=== PATIENT | male | born 1930 | race Caucasian/White ===

== ENCOUNTER 2016-11-15 13:36 | Observation (INO) | payer BC, OTHER ==
--- NOTE | 2016-11-15 14:32 | PDOC ---
History of Present Illness - General History Source: Patient, Spouse Exam Limitations: No Limitations <Emmanuelle Christina - Last Filed: 11/15/16 16:53> - History of Present Illness Initial Comments: 11/15/16 14:39 - General History Source: Patient, Spouse Exam Limitations: No Limitations - History of Present Illness Initial Comments: 11/15/16 14:32 The patient is an 86-year-old man, accompanied by , with a significant past medical history of hypertension, hypercholesterolemia, atrial fibrillation ( status post permanent pacemaker placement), end-stage renal disease (on hemodialysis TRS; received full hemodialysis today) who was sent from [facility] to the emergency department for further evaluation of generalized weakness and back pain. As per patients , the patient has been complaining of left sided lower back pain for the past three weeks. No numbness or tingling sensations to his extremities. No trauma/fall. He reports he was unable to sleep last night, as his pain was unbearable. He went to dialysis today and receive a full treatment. Patient was noted to be weak and was advised to go to the ER for further evaluation. Patients expresses concern as the patient was able to put on his clothes and perform his daily activities on his own, but now he is unable to even stand up as he experiences pain when he tries to get from standing to sitting position. No history of prostate Ca. No fever, chills. No chest pain, lightheadedness, dizziness, headaches, visual changes, palpitations. No abdominal pain, nausea, diarrhea. Allergies: Penicillin Past Surgical History: Permanent Pacemaker Placement. Right Knee Arthroscopy. Social History: Former smoker (Quit approximately 30 years ago). No ETOH and recreational drug use. Primary Care Physician: Dr. Everardo Lott Remainder of the review of systems is negative. <Emmanuelle Christina - Last Filed: 11/15/16 14:33> <Preeti Treviño - Last Filed: 11/16/16 16:03> - General Chief Complaint: Back Pain Stated Complaint: WEAKNESS Time Seen by Provider: 11/15/16 14:09 Past History <Emmanuelle Christina - Last Filed: 11/15/16 16:53> - Past Medical History Anemia: Yes Cardiac Disorders: Yes (PACEMAKER) CVA: No Diabetes: No Dialysis: Yes (RUPPERARM AV FISTULA) GI Disorders: Yes (ACID REFLUX) Disorders: No HTN: Yes Hypercholesterolemia: Yes Liver Disease: No Other medical history: HYPERKALEMIA - Surgical History Cardiac Surgery: Yes (pacemaker, STENTS) Orthopedic Surgery: Yes (R HIP FX) - Psycho/Social/Smoking Cessation Hx Anxiety: No Suicidal Ideation: No Smoking Status: No Smoking History: Unknown if ever smoked Years of Tobacco Use: 30 Have you smoked in the past 12 months: No Number of Cigarettes Smoked Daily: 0 If you are a former smoker, when did you quit?: 6YRS AGO Hx Alcohol Use: No Drug/Substance Use Hx: No Substance Use Type: None Hx Substance Use Treatment: No <Preeti Treviño - Last Filed: 11/16/16 16:03> - Past Medical History Allergies/Adverse Reactions: Allergies Allergy/AdvReac Type Severity Reaction Status Date / Time Penicillins Allergy Verified 11/15/16 13:58 Home Medications: Ambulatory Orders Apixaban [Eliquis] 2.5 mg PO BID 05/28/16 Aspirin [ASA -] 81 mg PO DAILY 05/28/16 Diltiazem HCl [Diltiazem 24Hr Cd] 120 mg PO DAILY 05/28/16 Multivitamins [Multivit ([facility] Formulary)] 1 tab PO DAILY 05/28/16 Sevelamer Carbonate [Renvela -] 800 mg PO TID 05/28/16 Metoprolol Succinate [Toprol XL -] 100 mg PO DAILY 06/01/16 Pantoprazole Sodium [Protonix -] 40 mg PO DAILY tablet.ec 06/03/16 Review of Systems - Review of Systems Able to Perform ROS?: Yes Comments:: 11/15/16 14:33 12 point review of systems is as per history of present illness and otherwise negative. <Emmanuelle Christina - Last Filed: 11/15/16 16:53> *Physical Exam - Vital Signs Last Vital Signs Temp Pulse Resp BP Pulse Ox 97.2 F L 60 18 84/53 98 11/15/16 13:52 11/15/16 13:52 11/15/16 13:52 11/15/16 13:52 11/15/16 13:52 <Emmanuelle Christina - Last Filed: 11/15/16 16:53> - Vital Signs Last Vital Signs Temp Pulse Resp BP Pulse Ox 97.2 F L 60 18 84/53 98 11/15/16 13:52 11/15/16 13:52 11/15/16 13:52 11/15/16 13:52 11/15/16 13:52 - Physical Exam Comments: 11/15/16 14:30 Physical exam Last Vital Signs Temp Pulse Resp BP Pulse Ox 97.2 F L 60 18 84/53 98 11/15/16 13:52 11/15/16 13:52 11/15/16 13:52 11/15/16 13:52 11/15/16 13:52 GENERAL: The patient is awake, and answering simple questions, poor historian HEAD: Normal with no signs of trauma. EYES: sclera anicteric, conjunctiva are normal. ENT: Moist mucous membranes. NECK: Normal range of motion, supple LUNGS: Breath sounds equal, clear to auscultation bilaterally. No wheezes, and no crackles. HEART: Regular rate and rhythm, normal S1 and S2 without murmur, rub or gallop. ABDOMEN: Soft, nontender, normoactive bowel sounds. No guarding, no rebound. No masses appreciated. BACK: There is mild diffuse LS-spine tenderness, and no T-spine or C-spine tenderness There is left paraspinal tenderness and plus minus left flank tenderness No bruises are seen EXTREMITIES: Normal range of motion, no edema. No clubbing or cyanosis. No cords, erythema, or tenderness. NEUROLOGICAL: Patient with diminished leg raising bilaterally due to pain Positive passive straight leg raising on the right for pain, and positive passive straight leg raising on the left for pain PSYCH: Normal mood, normal affect. SKIN: Warm, Dry, <Preeti Treviño - Last Filed: 11/16/16 16:03> ED Treatment Course - LABORATORY CBC & Chemistry Diagram: 11/15/16 14:26 11/15/16 14:35 <Emmanuelle Christina - Last Filed: 11/15/16 16:53> - LABORATORY CBC & Chemistry Diagram: 11/16/16 11:03 11/16/16 10:55 - RADIOLOGY Radiology Studies Ordered: Category Date Time Status ABDOMEN & PELVIS CT W/O CONTR [CT] Stat CT Scan 11/15/16 14:10 Ordered SPINE-LUMBAR SACRAL [RAD] Stat Radiology 11/15/16 14:11 Ordered <Sam Treviñoee - Last Filed: 11/16/16 16:03> Medical Decision Making - Medical Decision Making 11/15/16 16:[address] Velasquez. 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 11/15/16 16:15 Laboratory Results - last 24 hr 11/15/16 11/15/16 14:26 14:35 WBC 11.8 H RBC 3.11 L Hgb 8.9 L D Hct 28.0 L MCV 90.3 MCHC 31.8 L RDW 16.6 H D Plt Count 292 MPV 8.0 Sodium 142 Potassium 3.5 Chloride 103 Carbon Dioxide 28 Anion Gap 11 BUN 11 D Creatinine 2.6 H D Creat Clearance w eGFR 23.58 Random Glucose 109 H D Calcium 8.4 L Total Bilirubin 0.7 D AST 19 D ALT 21 Alkaline Phosphatase 407 H D Total Protein 6.0 L Albumin 2.2 L D 11/15/16 16:50 CT scan of the abdomen and pelvis as read by me Polycystic kidneys are noted There is severe multilevel DJD of the LS-spine seen on the CAT scan X-rays of the LS-spine is read by me Severe multilevel DJD with bridging and lipping, and lost of disc space Chest x-ray as read by me-NAD Patient has not given us a urine specimen yet-he states he makes no urine 11/15/16 17:19 Case and all results discussed with Dr. Hamida Velasquez-will place in observation Impression-back pain and weakness 11/15/16 21:35 Addendeum - Radiology reports CT L spine - radiology EXAM#: TYPE/EXAM: RESULT: [id number] CT/LUMBAR SPINE CT W/O CONTRAST Back pain. CT scan of the lumbar spine without intravenous contrast. Coronal and sagittal reconstruction images were obtained. Compared to x-rays of the lumbar spine obtained earlier on the same date. The height and alignment of the vertebral bodies appear unremarkable without evidence of a compression fracture or subluxation. Degenerative vacuum phenomena in the entire lumbar spine with marked narrowing of L5-S1 intervertebral disc space T12-L1 mild central disc bulge and posterior spur formation L3-L4 mild broadbase disc bulge without gross nerve root impingement. L4-L5 mild bilateral lateral disc bulge and posterior spur formation probably impinging left L4 nerve root. L5-S1 mild broadbase and bilateral lateral disc bulge with posterior spur formation impinging right L5 as well as right S1 nerve root in the lateral recess and reaching left L5 nerve root A distal abdominal aorta stent extending into the right and left common iliac artery are present. Partially included low- attenuation lesion in the right hepatic lobe as noted on prior CT scan of the abdomen done earlier on the same date. Impression: See discussion above No compression fracture, subluxation or bone destruction is identified. Multilevel mild disc bulge and posterior spur formation probably impinging left L4 nerve root at L4 -L5 level as well as impinging right L5 and S1 nerve root at L5-S1 level. 11/15/16 21:38 EXAM#: TYPE/EXAM: RESULT: [id number] CT/ABDOMEN PELVIS CT W/O CONTR Left flank level and marked pain CT scan of the abdomen pelvis without oral and intravenous contrast Coronal and sagittal reformatted images were obtained Compared to prior CT scan of the abdomen pelvis dated The visualized lung base appears unremarkable and the heart is moderately enlarged. A small hiatus hernia is again seen. The liver and spleen are within normal limits in size. There is a focal low-attenuation density in the right hepatic lobe measuring 3 cm. The stomach is collapsed and has could not be evaluated. Gallbladder is adequately distended with small intraluminal stones. Normal- appearing pancreas and both adrenal glands. Multiple bilateral renal cysts again seen. There is no evidence of small bowel obstruction or enlarged retroperitoneal lymph nodes. Interval aorta stent extending to the right and left iliac artery. 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 No para-aortic free fluid or fluid collections seen Normal stool burden in the colon. No free air or free fluid in the abdomen and pelvis. Decompressed urinary bladder limiting evaluation of its wall. Slightly enlarged prostate gland. Multilevel degenerative disc disease in the thoracic spine Impression: Interval focal low-attenuation lesion in the right hepatic lobe measuring 3 cm that is highly suspicious for malignancy, primary versus secondary. Further evaluation is needed. Interval aorto and bilateral iliac stent. Distal abdominal aorta now measures 4 cm in AP dimension. Multiple large bilateral renal cysts again seen without evidence of hydronephrosis. Dr Lara CT findings of liver nodule/mass to be evaluated by in-pt team <Preeti Treviño - Last Filed: 11/16/16 16:03> *DC/Admit/Observation/Transfer - Attestations Scribe Attestion: 11/15/16 14:33 Documentation prepared by Emmanuelle Christina, acting as medical social consultant for Preeti Treviño MD. <Emmanuelle Christina - Last Filed: 11/15/16 16:53> - Discharge Dispostion Admit: Yes <Preeti Treviño - Last Filed: 11/16/16 16:03> Diagnosis at time of Disposition: Back pain, Weakness - Referrals
[2016-11-15] MEDS ORDERED: HYDROmorphone HCL CARPU-JECT 1 MG/1 ML DISP.SYRIN IVPUSH ONE (14:44)
[2016-11-15] MEDS ORDERED: HYDROmorphone HCL CARPU-JECT 1 MG/1 ML DISP.SYRIN ONE (14:50)
[2016-11-15 14:51] LABS: MCH 28.7 pg (25.7-33.7); MCHC 31.8 g/dl (32.0-35.9); MEAN CELL VOLUME 90.3 fl (80-96); PLATELET COUNT 292 K/MM3 (134-434); RDW 16.6 % (11.9-15.9); WHITE BLOOD COUNT 11.8 K/mm3 (4.0-10.0)
[2016-11-15 15:17] LABS: ALBUMIN 2.2 g/dl (3.4-5.0); BILIRUBIN,TOTAL 0.7 mg/dL (0.2-1.0); CALCIUM 8.4 mg/dL (8.5-10.1); CREATININE 2.6 mg/dL (0.7-1.3)
[2016-11-15] MEDS ORDERED: traMADol HCL 50 MG TABLET PO PRN (20:45)
[2016-11-15] MEDS ORDERED: HYDROmorphone HCL CARPU-JECT 1 MG/1 ML DISP.SYRIN IVPB PRN (20:45)
[2016-11-15] MEDS ORDERED: DOCUSATE SODIUM 100 MG CAPSULE (FP) PO PRN (20:45)
[2016-11-15 20:48] VITALS: BMI 24.7
[2016-11-15] MEDS: APIXABAN 2.5 MG TABLET PO SCH (22:42)
--- NOTE | 2016-11-16 08:15 | EKG ---
Test Reason : Blood Pressure : / mmHG Vent. Rate : 060 BPM Atrial Rate : 258 BPM P-R Int : 000 ms QRS Dur : 118 ms QT Int : 472 ms P-R-T Axes : 000 -50 079 degrees QTc Int : 472 ms AV dual-paced rhythm with prolonged AV conduction ABNORMAL ECG WHEN COMPARED WITH ECG OF 01-JUN-2016 15:30, VENT. RATE HAS DECREASED BY 55 BPM PACED RHYTHM IS SEEN Confirmed by LALITO SCHROEDER, JAY ([id number]) on 11/16/2016 8:14:53 AM Referred By: Confirmed By:JAY STARKEY MD
[2016-11-16] MEDS: SEVELAMER CARBONATE 800 MG TAB (FP) PO SCH ×4 (08:16→18:51)
--- NOTE | 2016-11-16 10:15 | HP ---
Admitting History and Physical - Primary Care Physician PCP: Everardo Lott - Admission Chief Complaint: back pain History of Present Illness: ER HISTORY - History of Present Illness Initial Comments: 11/15/16 14:32 The patient is an 86-year-old man, accompanied by , with a significant past medical history of hypertension, hypercholesterolemia, atrial fibrillation ( status post permanent pacemaker placement), end-stage renal disease (on hemodialysis TRS; received full hemodialysis today) who was sent from Dialysis Center to the emergency department for further evaluation of generalized weakness and back pain. As per patients , the patient has been complaining of left sided lower back pain for the past three weeks. No numbness or tingling sensations to his extremities. No trauma/fall. He reports he was unable to sleep last night, as his pain was unbearable. He went to dialysis today and receive a full treatment. Patient was noted to be weak and was advised to go to the ER for further evaluation. Patients expresses concern as the patient was able to put on his clothes and perform his daily activities on his own, but now he is unable to even stand up as he experiences pain when he tries to get from standing to sitting position. No history of prostate Ca. No fever, chills. No chest pain, lightheadedness, dizziness, headaches, visual changes, palpitations. No abdominal pain, nausea, diarrhea. Pt examined by me on the floors at bedside Pt is lying in bed, comfortable He received IV Dilaudid in the ER yesterday no complaints wants to go home states that he has pain when he goes to dialysis and is sitting for long periods in the chair at outpt dialysis CT abd/pelvis and LS spine xrays were done History Source: Patient, Family Member Limitations to Obtaining History: No Limitations - Past Medical History Cardiovascular: Yes: HTN, Other (Aflutter on Eliquis, AAA) Gastrointestinal: Yes: Other (h/o rectal bleed- 2010, gastric ulcer) Renal/: Yes: Renal Inusuff, Hemodialysis - Past Surgical History Past Surgical History: Yes: AAA Repair, Permanent Pacemaker - Advance Directives Advance Directives: Yes: Health Care Proxy - Smoking History Smoking history: Unknown if ever smoked Have you smoked in the past 12 months: No Aproximately how many cigarettes per day: 0 If you are a former smoker, when did you quit?: 6YRS AGO - Alcohol/Substance Use Hx Alcohol Use: No - Social History History of Recent Travel: No Home Medications - Allergies Allergies/Adverse Reactions: Allergies Allergy/AdvReac Type Severity Reaction Status Date / Time Penicillins Allergy Verified 11/15/16 13:58 - Home Medications Home Medications: Ambulatory Orders Apixaban [Eliquis] 2.5 mg PO BID 05/28/16 Aspirin [ASA -] 81 mg PO DAILY 05/28/16 Diltiazem HCl [Diltiazem 24Hr Cd] 120 mg PO DAILY 05/28/16 Multivitamins [Multivit ([facility] Formul[facility])] 1 tab PO DAILY 05/28/16 Sevelamer Carbonate [Renvela -] 800 mg PO TID 05/28/16 Metoprolol Succinate [Toprol XL -] 100 mg PO DAILY 06/01/16 Pantoprazole Sodium [Protonix -] 40 mg PO DAILY tablet.ec 06/03/16 Family Disease History - Family Disease History Family History: Denies Review of Systems - Review of Systems Constitutional: denies: Chills, Fever, Loss of Appetite, Weakness Gastrointestinal: denies: Abdominal Pain Physical Examination Vital Signs: Vital Signs Temperature 97.5 F L 11/16/16 06:00 Pulse Rate 63 11/16/16 06:00 Respiratory Rate 18 11/16/16 06:00 Blood Pressure 103/51 11/16/16 06:00 O2 Sat by Pulse Oximetry (%) 94 L 11/15/16 21:00 Constitutional: Yes: No Distress, Calm Cardiovascular: Yes: Regular Rate and Rhythm, Murmur, Other (PPM) Respiratory: Yes: Diminished. No: Rales, Rhonchi Gastrointestinal: Yes: Normal Bowel Sounds, Soft. No: Distention, Tenderness Musculoskeletal: No: Back Pain, Muscle Pain Edema: No Psychiatric: Yes: Alert Labs: Laboratory Results - last 24 hr 11/15/16 11/15/16 14:26 14:35 WBC 11.8 H RBC 3.11 L Hgb 8.9 L D Hct 28.0 L MCV 90.3 MCHC 31.8 L RDW 16.6 H D Plt Count 292 MPV 8.0 Sodium 142 Potassium 3.5 Chloride 103 Carbon Dioxide 28 Anion Gap 11 BUN 11 D Creatinine 2.6 H D Creat Clearance w eGFR 23.58 Random Glucose 109 H D Calcium 8.4 L Total Bilirubin 0.7 D AST 19 D ALT 21 Alkaline Phosphatase 407 H D Total Protein 6.0 L Albumin 2.2 L D Laboratory Last Values WBC 11.8 K/mm3 (4.0-10.0) H 11/15/16 14:26 RBC 3.11 M/mm3 (4.00-5.60) L 11/15/16 14:26 Hgb 8.9 GM/dL (11.7-16.9) L D 11/15/16 14:26 Hct 28.0 % (35.4-49) L 11/15/16 14:26 MCV 90.3 fl (80-96) 11/15/16 14:26 MCHC 31.8 g/dl (32.0-35.9) L 11/15/16 14:26 RDW 16.6 % (11.9-15.9) H D 11/15/16 14:26 Plt Count 292 K/MM3 (134-434) 11/15/16 14:26 MPV 8.0 fl (7.5-11.1) 11/15/16 14:26 Sodium 142 mmol/L (136-145) 11/15/16 14:35 Potassium 3.5 mmol/L (3.5-5.1) 11/15/16 14:35 Chloride 103 mmol/L (98-107) 11/15/16 14:35 Carbon Dioxide 28 mmol/L (21-32) 11/15/16 14:35 Anion Gap 11 (8-16) 11/15/16 14:35 BUN 11 mg/dL (7-18) D 11/15/16 14:35 Creatinine 2.6 mg/dL (0.7-1.3) H D 11/15/16 14:35 Creat Clearance w eGFR 23.58 (>60) 11/15/16 14:35 Random Glucose 109 mg/dL (74-106) H D 11/15/16 14:35 Calcium 8.4 mg/dL (8.5-10.1) L 11/15/16 14:35 Total Bilirubin 0.7 mg/dL (0.2-1.0) D 11/15/16 14:35 AST 19 U/L (15-37) D 11/15/16 14:35 ALT 21 U/L (12-78) 11/15/16 14:35 Alkaline Phosphatase 407 U/L (45-117) H D 11/15/16 14:35 Total Protein 6.0 g/dl (6.4-8.2) L 11/15/16 14:35 Albumin 2.2 g/dl (3.4-5.0) L D 11/15/16 14:35 Imaging - Results Chest X-ray: Image Reviewed Cat Scan: Report Reviewed (CT abd/pelvis and LS spine noted) EKG: Image Reviewed (paced) Problem List - Problems (1) Atrial flutter Code(s): I48.92 - UNSPECIFIED ATRIAL FLUTTER Qualifiers: Atrial flutter type: unspecified Qualified Code(s): I48.92 - Unspecified atrial flutter (2) ESRD (end stage renal disease) Code(s): N18.6 - END STAGE RENAL DISEASE (3) ESRD (end stage renal disease) on dialysis Code(s): N18.6 - END STAGE RENAL DISEASE Z99.2 - DEPENDENCE ON RENAL DIALYSIS (4) Liver mass, right lobe Code(s): R16.0 - HEPATOMEGALY, NOT ELSEWHERE CLASSIFIED (5) AAA (abdominal aortic aneurysm) Code(s): I71.4 - ABDOMINAL AORTIC ANEURYSM, WITHOUT RUPTURE (6) Intractable back pain Code(s): M54.9 - DORSALGIA, UNSPECIFIED Assessment/Plan PLAN Pt 's back pain better, LS spine CT-- nerve impingement -- start gabapentin Physical therapy ordered, Tramadol as needed for pain . DC Dilaudid H/O AAA s/p repair-- distal aorta is widened , check CT abd/pelvis with IV contrast ESRD on HD-- HD per Renal, not volume overloaded Liver mass- seen on CT abd/pelvis, check tumor markers. Spoke with about it , tumor markers pending. She will discuss with her son about further work up including biopsy-- he will need to be off Eliquis for 5 days and be on Heparin infusion in the meantime . GI eval DVT prophylaxis-- On eliquis BP is low-- Toprol and cardizem on hold, check CT abd/pelvis with iv contrast for AAA Time spent including discussing with -- 35min
--- NOTE | 2016-11-16 11:18 | CONSULT ---
Consult - text type - Consultation Consultation Note: Renal Consult for ESRD on HD This is a 86 year old gentleman with PMhx of ESRD on HD (TTS), Afib on Eliquis, Hypertension, HLD who presented to the ED following dialysis with complaints of generalized pain but most noticeable in Left Lower back. As per the the pain is worst when sitting for a long time at dialysis but recently it has been persistent at home too. No bowel or bladder incontinence. s/p complete dialysis yesterday. Currently denies any pain, sob, chest pain, N/V/D. CT of the Abd showed a lesion/mass in the liver and multiple kidney cysts. PMhx: as above Allergies: NKDA Family Hx: NC Social Hx: No T/A/D ROS: as per HPI Home Meds: Home Medications Medication Instructions Recorded Apixaban [Eliquis] 2.5 mg PO BID 05/28/16 Aspirin [ASA -] 81 mg PO DAILY 05/28/16 Diltiazem HCl [Diltiazem 24Hr Cd] 120 mg PO DAILY 05/28/16 Multivitamins [Multivit ([facility] 1 tab PO DAILY 05/28/16 Formulary)] Sevelamer Carbonate [Renvela -] 800 mg PO TID 05/28/16 Metoprolol Succinate [Toprol XL -] 100 mg PO DAILY 06/01/16 Pantoprazole Sodium [Protonix -] 40 mg PO DAILY tablet.ec 06/03/16 Vital Signs Temperature 97.5 F L 11/16/16 06:00 Pulse Rate 63 11/16/16 06:00 Respiratory Rate 18 11/16/16 06:00 Blood Pressure 103/51 11/16/16 06:00 O2 Sat by Pulse Oximetry (%) 94 L 11/15/16 21:00 Intake & Output 11/13/16 11/14/16 11/15/16 11/16/16 23:59 23:59 23:59 23:59 Weight 135 lb Gen: NAD, awake and alert HEENT: NC/AT CVS: RRR, No M/R Lungs: CTA, no rales or wheeze Abd: soft NT/ND Ext: No edema, clubbing or cyanosis. Some erythema left heel Neuro: AAOX3, no focal defects CBC, BMP 11/15/16 14:26 11/15/16 14:35 Laboratory Tests 11/15/16 11/15/16 11/15/16 14:35 14:35 14:35 Calcium 8.4 L Alkaline Phosphatase 407 H D Total Protein 6.0 L Albumin 2.2 L D Tumor Marker AFP Pending Carcinoembryonic Ag Pending Current Medications Apixaban (Eliquis -) 2.5 mg PO BID [facility] Last Admin: 11/15/16 22:42 Dose: 2.5 mg Aspirin (Asa -) 81 mg PO DAILY [facility] Diltiazem HCl (Cardizem Cd -) 120 mg PO DAILY [facility] Docusate Sodium (Colace -) 100 mg PO BID PRN PRN Reason: CONSTIPATION Hydromorphone HCl (Dilaudid Injection -) 0.5 mg IVPB Q6H PRN PRN Reason: PAIN Metoprolol Succinate (Toprol Xl -) 100 mg PO DAILY [facility] Pantoprazole Sodium (Protonix -) 40 mg PO DAILY [facility] Sevelamer Carbonate (Renvela -) 800 mg PO TIDCM [facility] Last Admin: 11/16/16 09:03 Dose: 800 mg Tramadol HCl (Ultram -) 50 mg PO Q4H PRN PRN Reason: PAIN A/P 86 year old gentleman with PMhx of ESRD on HD (TTS), Afib on Eliquis, Hypertension, HLD who presented to the ED following dialysis with complaints of gerneralzied pain but most noticeable in Left Lower back. #Lower Back pain Pain control as per primary CT of the spine showed multilevel disc buldge and spur formation #Liver Lesion suspicious for malignancy Tumor markers ordered Pt may benefit from contrast CT of the Abd GI consult ordered #Kidney Cysts Check CT of the Abd with IV contrast to r/o complex Cysts #ESRD on HD no acute indication for dialysis today next dialysis for tomorrow morning #Hypertension BP is marginal today holding metoprolol and Cardizem #Afib on Eliquis holding BB and CCB because of marginal BP Thank you Addy Anderson DO
[2016-11-16] MEDS: METOPROLOL SUCCINATE 100 MG TAB.SR.24H (FP) PO SCH (11:21)
[2016-11-16] MEDS ORDERED: PT OWN MED DRAWER 7, Y5N ONE ×2 (11:23→21:35)
[2016-11-16] MEDS: ASPIRIN 81 MG CHEWABLE TABLETS PO SCH (11:24)
[2016-11-16] MEDS: PANTOPRAZOLE 40 MG TABLET (FP) PO SCH (11:25)
[2016-11-16] MEDS: APIXABAN 2.5 MG TABLET PO SCH ×2 (11:25→22:00)
[2016-11-16 11:36] LABS: MCH 28.6 pg (25.7-33.7); MCHC 31.8 g/dl (32.0-35.9); MEAN CELL VOLUME 90.1 fl (80-96); MEAN PLT VOLUME 8.2 fl (7.5-11.1); PLATELET COUNT 298 K/MM3 (134-434); RDW 17.1 % (11.9-15.9); WHITE BLOOD COUNT 8.7 K/mm3 (4.0-10.0)
[2016-11-16 12:09] LABS: ALBUMIN 2.1 g/dl (3.4-5.0); CALCIUM 7.9 mg/dL (8.5-10.1); COCKROFT - GAULT 11.4; CREATININE 4.1 mg/dL (0.7-1.3)
[2016-11-16 12:12] LABS: BILIRUBIN,TOTAL 0.7 mg/dL (0.2-1.0); TOT PROT 5.6 g/dl (6.4-8.2)
--- NOTE | 2016-11-16 17:46 | CON.GI ---
Consult Consult Specialty:: GI Referred by:: Dr. Hamida Velasquez - History of Present Illness Chief Complaint: "My back hurts" History of Present Illness: 86M admitted for evaluation of back pain. He was evaluated in 2010 for GI bleed. He ultimately underwent EGD x 2, the first revealing blood clot in the duodenal bulb, the second look EGD revealing a clean based duodenal ulcer. Colonoscopy revealed diverticulosis and blood in the colon limiting evaluation somewhat. He is now admitted for back pain. A CT scan of the abdomen without contrast revealed a 3cm right hepatic lobe lesion, suspicious for a malignancy. He denies abdominal pain. His believes he has lost alot of weight recently, about 11 pounds in the last month. There is no history of known liver disease, hepatitis, alcohol abuse or family history of liver disease however his father at age 61, possibly from ascites related complications. - History Source History Provided By: Patient - Past Medical History Cardio/Vascular: Yes: HTN, Other (Aflutter on Eliquis, AAA) Gastrointestinal: Yes: Other (h/o rectal bleed- 2010, gastric ulcer) Renal/: Yes: Renal Inusuff, Hemodialysis - Past Surgical History Past Surgical History: Yes: AAA Repair, AV Fistula/Graft (right arm), Permanent Pacemaker - Alcohol/Substance Use Hx Alcohol Use: No - Smoking History Smoking history: Unknown if ever smoked Have you smoked in the past 12 months: No Aproximately how many cigarettes per day: 0 If you are a former smoker, when did you quit?: 6YRS AGO - Social History Usual Living Arrangement: With Spouse ADL: Independent 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 Place of : Other ([place]) History of Recent Travel: No Home Medications - Allergies Allergies/Adverse Reactions: Allergies Allergy/AdvReac Type Severity Reaction Status Date / Time Penicillins Allergy Verified 11/15/16 13:58 - Home Medications Home Medications: Ambulatory Orders Apixaban [Eliquis] 2.5 mg PO BID 05/28/16 Aspirin [ASA -] 81 mg PO DAILY 05/28/16 Diltiazem HCl [Diltiazem 24Hr Cd] 120 mg PO DAILY 05/28/16 Multivitamins [Multivit ([facility] Formulary)] 1 tab PO DAILY 05/28/16 Sevelamer Carbonate [Renvela -] 800 mg PO TID 05/28/16 Metoprolol Succinate [Toprol XL -] 100 mg PO DAILY 06/01/16 Pantoprazole Sodium [Protonix -] 40 mg PO DAILY tablet.ec 06/03/16 Family Disease History - Family Disease History Family Disease History: Other: Father ( 61: ? ascites related complications) , Mother (: 74: CVA) Other Family History: 5 siblings. 1 son. No family history of colorectal cancer Review of Systems - Review of Systems Constitutional: reports: Loss of Appetite, Unintentional Wgt. Loss Cardiovascular: denies: Chest Pain, Shortness of Breath Respiratory: denies: Cough Gastrointestinal: denies: Abdominal Pain, Diarrhea, Rectal Bleeding Physical Exam-GI Vital Signs: Vital Signs Temperature 98.6 F 11/16/16 17:23 Pulse Rate 65 11/16/16 17:23 Respiratory Rate 20 11/16/16 17:23 Blood Pressure 111/36 11/16/16 17:23 O2 Sat by Pulse Oximetry (%) 96 11/16/16 09:00 Constitutional: Yes: Calm Eyes: No: Sclera Icterus Cardiovascular: Yes: Regular Rate and Rhythm. No: Murmur Respiratory: Yes: CTA Bilaterally Gastrointestinal Inspection: No: Distention, Scars ...Auscultate: Yes: Normoactive Bowel Sounds ...Palpate: No: Hepatomegaly, Splenomegaly, Tenderness Edema: No Neurological: Yes: Alert, Oriented Labs: CBC, BMP 11/16/16 11:03 11/16/16 10:55 Hepatic Panel Total Bilirubin 0.7 mg/dL (0.2-1.0) 11/16/16 10:55 AST 15 U/L (15-37) D 11/16/16 10:55 ALT 16 U/L (12-78) D 11/16/16 10:55 Alkaline Phosphatase 364 U/L (45-117) H 11/16/16 10:55 Albumin 2.1 g/dl (3.4-5.0) L 11/16/16 10:55 Problem List - Problems (1) Liver mass, right lobe Assessment/Plan: Unclear etiology. Although not reviewed as of yet, the lesion does not appear to be enhancing and ? if there are smaller lesions within the liver. Suggests more metastatic process than primary liver lesions. Will await contrast CT scan read. Check AFP, CEA, CA 19-9 Consider oncology evaluation Liver biopsy could be considered: discussed this option with Mr. Leslie and his . I explained that it would be to get more information about the mass and did explain that it very well could be a cancer. His wanted to speak with their son regarding this prior to making a decision. With back pain ? if bone scan warranted Code(s): R16.0 - HEPATOMEGALY, NOT ELSEWHERE CLASSIFIED
[2016-11-17] MEDS: SEVELAMER CARBONATE 800 MG TAB (FP) PO SCH ×3 (09:34→16:29)
[2016-11-17] MEDS: METOPROLOL SUCCINATE 100 MG TAB.SR.24H (FP) PO SCH (09:43)
[2016-11-17] MEDS: APIXABAN 2.5 MG TABLET PO SCH ×2 (09:43→21:52)
[2016-11-17] MEDS: PANTOPRAZOLE 40 MG TABLET (FP) PO SCH (09:43)
[2016-11-17] MEDS: ASPIRIN 81 MG CHEWABLE TABLETS PO SCH (09:43)
--- NOTE | 2016-11-17 10:29 | PN ---
Progress Note, Physician Chief Complaint: pt examined in HD feels well No distress - Current Medication List Current Medications: Active Medications Apixaban (Eliquis -) 2.5 mg PO BID [facility] Last Admin: 11/17/16 09:43 Dose: Not Given Aspirin (Asa -) 81 mg PO DAILY [facility] Last Admin: 11/17/16 09:43 Dose: Not Given Diltiazem HCl (Cardizem Cd -) 120 mg PO DAILY [facility] Last Admin: 11/17/16 09:44 Dose: Not Given Docusate Sodium (Colace -) 100 mg PO BID PRN PRN Reason: CONSTIPATION Epoetin Alf (Epogen -) 10,000 units IVPUSH ONCE ONE Stop: 11/17/16 06:01 Hydromorphone HCl (Dilaudid Injection -) 0.5 mg IVPB Q6H PRN PRN Reason: PAIN Metoprolol Succinate (Toprol Xl -) 100 mg PO DAILY [facility] Last Admin: 11/17/16 09:43 Dose: Not Given Pantoprazole Sodium (Protonix -) 40 mg PO DAILY [facility] Last Admin: 11/17/16 09:43 Dose: Not Given Sevelamer Carbonate (Renvela -) 800 mg PO TIDCM [facility] Last Admin: 11/17/16 09:34 Dose: 800 mg Tramadol HCl (Ultram -) 50 mg PO Q4H PRN PRN Reason: PAIN - Objective Vital Signs: Vital Signs Temperature 97.6 F 11/17/16 06:00 Pulse Rate 66 11/17/16 06:00 Respiratory Rate 18 11/17/16 06:00 Blood Pressure 123/41 11/17/16 06:00 O2 Sat by Pulse Oximetry (%) 96 11/16/16 17:00 Constitutional: Yes: No Distress Cardiovascular: Yes: Pulse Irregular Respiratory: Yes: Diminished Gastrointestinal: Yes: Normal Bowel Sounds, Soft. No: Distention, Tenderness Edema: No Labs: CBC, BMP 11/16/16 11:03 11/16/16 10:55 Problem List - Problems (1) Atrial flutter Code(s): I48.92 - UNSPECIFIED ATRIAL FLUTTER Qualifiers: Atrial flutter type: unspecified Qualified Code(s): I48.92 - Unspecified atrial flutter (2) ESRD (end stage renal disease) Code(s): N18.6 - END STAGE RENAL DISEASE (3) ESRD (end stage renal disease) on dialysis Code(s): N18.6 - END STAGE RENAL DISEASE Z99.2 - DEPENDENCE ON RENAL DIALYSIS (4) Liver mass, right lobe Code(s): R16.0 - HEPATOMEGALY, NOT ELSEWHERE CLASSIFIED (5) AAA (abdominal aortic aneurysm) Code(s): I71.4 - ABDOMINAL AORTIC ANEURYSM, WITHOUT RUPTURE (6) Intractable back pain Code(s): M54.9 - DORSALGIA, UNSPECIFIED Assessment/Plan PLAN Pt 's back pain better, LS spine CT-- nerve impingement --on gabapentin Physical therapy ordered, Tramadol as needed for pain . DC Dilaudid H/O AAA s/p repair-- distal aorta is widened , CT abd/pelvis with IV contrast noted ESRD on HD-- HD per Renal, not volume overloaded Liver mass- seen on CT abd/pelvis-- looks like metastatic -- awaiting decision from family with regards to further treatment DVT prophylaxis-- On eliquis dc planning will depend on family decision with regards to liver biopsy or EGD as he has significant thickening of gastric fundus on CT with contrast
[2016-11-17 11:32] LABS: MCH 28.4 pg (25.7-33.7); MEAN PLT VOLUME 8.3 fl (7.5-11.1); PLATELET COUNT 328 K/MM3 (134-434); RDW 16.6 % (11.9-15.9); WHITE BLOOD COUNT 8.9 K/mm3 (4.0-10.0)
[2016-11-17 12:03] LABS: CALCIUM 8.2 mg/dL (8.5-10.1); COCKROFT - GAULT 8.66; CREATININE 5.4 mg/dL (0.7-1.3); PHOSPHOROUS 3.3 mg/dL (2.5-4.9)
[2016-11-17 12:05] LABS: BILIRUBIN,TOTAL 0.6 mg/dL (0.2-1.0); TOT PROT 5.6 g/dl (6.4-8.2)
--- NOTE | 2016-11-17 12:27 | PN ---
Progress Note (short form) - Note Progress Note: Renal Follow up for ESRD on HD Pt seen and examined on dialysis BP stable, Goal UF is 2L pt without any complaints s/p CT of Abd/Pelvis with contrast yesterday Vital Signs Temperature 97.6 F 11/17/16 06:00 Pulse Rate 81 11/17/16 12:00 Respiratory Rate 18 11/17/16 12:00 Blood Pressure 92/43 11/17/16 12:00 O2 Sat by Pulse Oximetry (%) 96 11/16/16 17:00 Intake & Output 11/14/16 11/15/16 11/16/16 11/17/16 23:59 23:59 23:59 23:59 Intake Total 880 Output Total 0 Balance 880 Weight 135 lb Gen: NAD, awake and alert HEENT: NC/AT CVS: RRR, No M/R Lungs: CTA, no rales or wheeze Abd: soft NT/ND Ext: No edema, clubbing or cyanosis CBC, BMP 11/17/16 10:40 11/17/16 10:40 Laboratory Tests 11/15/16 11/15/16 11/17/16 14:35 14:35 06:30 MCV Calcium Phosphorus Albumin Tumor Marker AFP 1.9 Carcinoembryonic Ag 6.9 H CA 19-9 Antigen Pending 11/17/16 11/17/16 10:40 10:40 MCV 89.0 Calcium 8.2 L Phosphorus 3.3 Albumin 2.0 L Tumor Marker AFP Carcinoembryonic Ag CA 19-9 Antigen Current Medications Apixaban (Eliquis -) 2.5 mg PO BID [facility] Last Admin: 11/17/16 09:43 Dose: Not Given Aspirin (Asa -) 81 mg PO DAILY [facility] Last Admin: 11/17/16 09:43 Dose: Not Given Diltiazem HCl (Cardizem Cd -) 120 mg PO DAILY [facility] Last Admin: 11/17/16 09:44 Dose: Not Given Docusate Sodium (Colace -) 100 mg PO BID PRN PRN Reason: CONSTIPATION Epoetin Alf (Epogen -) 10,000 units IVPUSH ONCE ONE Stop: 11/17/16 06:01 Hydromorphone HCl (Dilaudid Injection -) 0.5 mg IVPB Q6H PRN PRN Reason: PAIN Metoprolol Succinate (Toprol Xl -) 100 mg PO DAILY [facility] Last Admin: 11/17/16 09:43 Dose: Not Given Pantoprazole Sodium (Protonix -) 40 mg PO DAILY [facility] Last Admin: 11/17/16 09:43 Dose: Not Given Sevelamer Carbonate (Renvela -) 800 mg PO TIDCM [facility] Last Admin: 11/17/16 11:21 Dose: Not Given Tramadol HCl (Ultram -) 50 mg PO Q4H PRN PRN Reason: PAIN A/P 86 year old gentleman with PMhx of ESRD on HD (TTS), Afib on Eliquis, Hypertension, HLD who presented to the ED following dialysis with complaints of gerneralzied pain but most noticeable in Left Lower back. #Lower Back pain CT of the spine showed multilevel disc buldge and spur formation consider bone scan since liver lesion is suspicous for Ca #Liver Lesion suspicious for malignancy CT of the Abd showed lesion with some enhancement suspicious for malignancy GI following Biopsy if pt and family are agreeable - this admssion vs. outpatient #Kidney Cysts CT shoed Cysts and no complex cysts noted #ESRD on HD Tolerating dialysis well today Goal UF is 1.5-2L #Hypertension holding BP meds before HD #Afib on Eliquis holding BB and CCB because of marginal BP Thank you Addy Anderson DO
[2016-11-17] MEDS ORDERED: EPOETIN ALFA 10,000 UNIT/1 ML VIAL IVPUSH ONE (13:45)
[2016-11-17 15:24] LABS: CREATININE 1.1 mg/dL (0.7-1.3)
--- NOTE | 2016-11-17 19:12 | PN ---
Progress Note (short form) - Note Progress Note: Discussed CT scan findings with patient and his family. Discused that it it highly suspicious that there is a cancer in the liver of unclear origin. I explained that there was also an inflammatory process in the stomach and that it was unclear as to whether this was a cancerous process as well. I also said it's possible that the stomach process could be contributing to her back pain and could be a cancerous process as well. We discussed options. We discussed liver biopsy, EGD and possibly colonoscopy. We discussed potential risks of the procedure like but not limited to bleeding, perforation requiring surgery to repair, infection, sedation medication effetc all of which could be potentially life threatening. After discussion he said that he "didn't care what was in there", he didn't want any further testing and wanted to go home. Problem List - Problems (1) Liver mass, right lobe Code(s): R16.0 - HEPATOMEGALY, NOT ELSEWHERE CLASSIFIED
[2016-11-18 07:45] VITALS: BP 102/56
[2016-11-18] MEDS: SEVELAMER CARBONATE 800 MG TAB (FP) PO SCH (09:05)
[2016-11-18 09:07] VITALS: PULSE 91; TEMP 97.8
[2016-11-18] MEDS ORDERED: PT OWN MED DRAWER 7, Y5N ONE (10:02)
[2016-11-18] MEDS: ASPIRIN 81 MG CHEWABLE TABLETS PO SCH (10:07)
[2016-11-18] MEDS: APIXABAN 2.5 MG TABLET PO SCH (10:07)
[2016-11-18] MEDS: PANTOPRAZOLE 40 MG TABLET (FP) PO SCH (10:07)
[2016-11-18] MEDS: METOPROLOL SUCCINATE 100 MG TAB.SR.24H (FP) PO SCH (10:07)
--- NOTE | 2016-11-18 10:47 | DS ---
Physical Examination Vital Signs: Vital Signs Temperature 97.8 F 11/18/16 09:06 Pulse Rate 91 H 11/18/16 09:06 Respiratory Rate 18 11/18/16 09:06 Blood Pressure 102/56 11/18/16 07:43 O2 Sat by Pulse Oximetry (%) 96 11/17/16 17:00 Labs: CBC, BMP 11/17/16 10:40 11/17/16 13:50 <Gaudencio Montoya - Last Filed: 11/18/16 10:46> Vital Signs: Vital Signs Temperature 97.8 F 11/18/16 09:06 Pulse Rate 91 H 11/18/16 09:06 Respiratory Rate 18 11/18/16 09:06 Blood Pressure 102/56 11/18/16 07:43 O2 Sat by Pulse Oximetry (%) 96 11/17/16 17:00 Findings/Remarks: Patient seen and examined. Chart reviewed. Comfortable. No complaints. Pain okay. Wants to go home. at bedside. Patient and do not want any testing. Aware of the risks that cancer might be there. I discussed in detail with them. They say they will follow up with their PMD. Constitutional: Yes: No Distress, Calm Eyes: Yes: Conjunctiva Clear Neck: Yes: Supple Cardiovascular: Yes: Pulse Irregular Respiratory: Yes: Diminished (at bases.) Gastrointestinal: Yes: Soft Edema: No Neurological: Yes: Alert Labs: CBC, BMP 11/17/16 10:40 11/17/16 13:50 <Emmanuelle Christina - Last Filed: 11/18/16 10:53> Discharge Summary Reason For Visit: BACK PAIN; WEAKNESS Current Active Problems AAA (abdominal aortic aneurysm) (Acute) Atrial flutter (Acute) Back pain (Acute) ESRD (end stage renal disease) (Acute) Gastric ulcer (Acute) Intractable back pain (Acute) Liver mass, right lobe (Acute) Systolic CHF (Acute) Weakness (Acute) - Home Medications Comprehensive Discharge Medication List: Ambulatory Orders Apixaban [Eliquis] 2.5 mg PO BID 05/28/16 Aspirin [ASA -] 81 mg PO DAILY 05/28/16 Diltiazem HCl [Diltiazem 24Hr Cd] 120 mg PO DAILY 05/28/16 Multivitamins [Multivit ([facility] Formulary)] 1 tab PO DAILY 05/28/16 Sevelamer Carbonate [Renvela -] 800 mg PO TID 05/28/16 Metoprolol Succinate [Toprol XL -] 100 mg PO DAILY 06/01/16 Pantoprazole Sodium [Protonix -] 40 mg PO DAILY tablet.ec 06/03/16 Docusate Sodium [Colace -] 100 mg PO BID PRN #60 cap 11/18/16 Sevelamer Carbonate [Renvela -] 800 mg PO TIDCM tab 11/18/16 Tramadol HCl [Ultram -] 50 mg PO Q8H PRN #30 tablet MDD 2 11/18/16 <Gaudencio Montoya - Last Filed: 11/18/16 10:46> Current Active Problems AAA (abdominal aortic aneurysm) (Acute) Atrial flutter (Acute) Back pain (Acute) ESRD (end stage renal disease) (Acute) Gastric ulcer (Acute) Intractable back pain (Acute) Liver mass, right lobe (Acute) Systolic CHF (Acute) Weakness (Acute) Hospital Course: The patient is an 86-year-old man with a significant past medical history of hypertension, hypercholesterolemia, atrial fibrillation (status post permanent pacemaker placement), end-stage renal disease (on hemodialysis TRS; received full hemodialysis on 11/15/2016) who was sent from Dialysis Center, 3 days ago, to the emergency department for further evaluation of generalized weakness and back pain. Workup revealed liver mass-- seen on CT of the abdomen and pelvis-- likely metastatic. As mentioned before, patient does not want any further testing. Will discharge home today. Short supply of Tramadol also prescribed. Medications reconciled. Patient to follow up with his PMD next week. Patient will also have dialysis tomorrow, as scheduled. Time spent on discharge planning/ coordinating care/ documenting/ examining as well as discussing with the patient and family-- 40 minutes. Discussed with nursing staff also. Documentation prepared by Emmanuelle Christina, acting as a medical technologist prn for Gaudencio Montoya MD - Home Medications Comprehensive Discharge Medication List: Ambulatory Orders Apixaban [Eliquis] 2.5 mg PO BID 05/28/16 Aspirin [ASA -] 81 mg PO DAILY 05/28/16 Diltiazem HCl [Diltiazem 24Hr Cd] 120 mg PO DAILY 05/28/16 Multivitamins [Multivit ([facility] Formulary)] 1 tab PO DAILY 05/28/16 Sevelamer Carbonate [Renvela -] 800 mg PO TID 05/28/16 Metoprolol Succinate [Toprol XL -] 100 mg PO DAILY 06/01/16 Pantoprazole Sodium [Protonix -] 40 mg PO DAILY tablet.ec 06/03/16 Docusate Sodium [Colace -] 100 mg PO BID PRN #60 cap 11/18/16 Sevelamer Carbonate [Renvela -] 800 mg PO TIDCM tab 11/18/16 Tramadol HCl [Ultram -] 50 mg PO Q8H PRN #30 tablet MDD 2 11/18/16 <Emmanuelle Christina - Last Filed: 11/18/16 10:53> - Instructions Referrals: Everardo Lott MD [Primary Care Provider] -
[2016-11-19 00:07] LABS: HEP B SURFACE AB Reactive (.)
== END 2016-11-18 11:43 | disposition home or self-care (01) ==
LOC: JER 13:36 → JERBED 17:20 → J8W 21:20
PROVIDERS: ADMIT Internal Medicine; ATTEND Internal Medicine
PROC: 3E033NZ Introduction of Analgesics, Hypnotics, Sedatives into Peripheral Vein, Percutaneous Approach (ICD-10-PCS; principal; 2016-11-15)
PROC: 3E033GC Introduction of Other Therapeutic Substance into Peripheral Vein, Percutaneous Approach (ICD-10-PCS; 2016-11-15)
DX: I48.92 Unspecified atrial flutter (principal); I48.91 Unspecified atrial fibrillation; I12.0 Hypertensive chronic kidney disease with stage 5 chronic kidney disease or end stage renal disease; N18.6 End stage renal disease; R16.0 Hepatomegaly, not elsewhere classified; I71.4 Abdominal aortic aneurysm, without rupture; M54.9 Dorsalgia, unspecified; M54.5 Low back pain; Z79.01 Long term (current) use of anticoagulants; Z99.2 Dependence on renal dialysis; K76.9 Liver disease, unspecified; N28.1 Cyst of kidney, acquired; Z79.82 Long term (current) use of aspirin
CPT/HCPCS: 36415; 71010-TC; 72100-TC; 72131-TC; 74176-TC; 74177-TC; 80053; 82105; 82378; 82565; 84100; 84520; 85027; 86301; 86704; 86706; 86708; 87340; 93005; 93010; 97116-GP; 97162; 99282-25; G0378; J0885

== ENCOUNTER 2016-11-19 09:33 | Emergency (ER) | payer BC, OTHER ==
--- NOTE | 2016-11-19 09:59 | PDOC ---
History of Present Illness <Jazmine Arriaga - Last Filed: 11/19/16 12:01> - General History Source: Patient, Spouse, Old Records Exam Limitations: No Limitations - History of Present Illness Initial Comments: 11/19/16 10:11 The patient is an 86-year-old man, accompanied by , with a significant past medical history of hypertension, hypercholesterolemia, atrial fibrillation ( status post permanent pacemaker placement), end-stage renal disease (on hemo- dialysis q. TRS) who presents to the emergency department via EMS for further evaluation of back pain. Patient was in this ED on 11/15/16 for back pain for the past month. At that time, he was noted to feel weak while undergoing dialysis and was sent to the ED. Patient was ultimately admitted. Workup during admission revealed osteoporosis of the back and ? liver mass with metastasis. Patient did not want further testing, thus he was discharged on a short supply of Tramadol. This morning, the patient was getting ready for hemo-dialysis, when his noted that he was unable to stand up or walk secondary to his pain. His gave him Tramadol and canceled his dialysis appointment at [facility] and EMS was activated. Patient was noted to by hypotensive upon triage arrival. During patient interview, his blood pressure was noted to be 96/49. Patient is currently complains of right heel pain. He currently does not complain of back pain. No other complaints. No fever, chills. No chest pain, lightheadedness, dizziness, visual changes, loss of conciousness , palpittaions, headaches No cough, shortness of breath No leg pain. No abdominal pain, nausea, vomiting. Allergies: Penicillin Past Surgical History: Permanent Pacemaker Placement. Right Knee Arthroscopy Social History: Former smoker (quite approximately 30 years ago). No ETOH and recreational drug use. Primary Care Physician: Dr. Everardo Lott [phone] Analytic Programmer: Dr. Yolande Moore [phone] <Emmanuelle Christina - Last Filed: 11/19/16 12:19> - General Chief Complaint: Back Pain Stated Complaint: BACK PAIN Time Seen by Provider: 11/19/16 09:59 Past History - Past Medical History Anemia: Yes Cardiac Disorders: Yes (PACEMAKER) CVA: No Diabetes: No Dialysis: Yes (RUPPERARM AV FISTULA) GI Disorders: Yes (ACID REFLUX) Disorders: No HTN: Yes Hypercholesterolemia: Yes Liver Disease: No - Surgical History Cardiac Surgery: Yes (pacemaker, STENTS) Orthopedic Surgery: Yes (R HIP FX) - Psycho/Social/Smoking Cessation Hx Anxiety: No Suicidal Ideation: No Smoking Status: No Smoking History: Former smoker Years of Tobacco Use: 30 Have you smoked in the past 12 months: No Number of Cigarettes Smoked Daily: 0 If you are a former smoker, when did you quit?: 6YRS AGO Information on smoking cessation initiated: No Hx Alcohol Use: No Drug/Substance Use Hx: No Substance Use Type: None Hx Substance Use Treatment: No <Jazmine Arriaga - Last Filed: 11/19/16 12:01> <Emmanuelle Christina - Last Filed: 11/19/16 12:19> - Past Medical History Allergies/Adverse Reactions: Allergies Allergy/AdvReac Type Severity Reaction Status Date / Time Penicillins Allergy Verified 11/15/16 13:58 Home Medications: Ambulatory Orders Apixaban [Eliquis] 2.5 mg PO BID 05/28/16 Aspirin [ASA -] 81 mg PO DAILY 05/28/16 Multivitamins [Multivit ([facility] Formulary)] 1 tab PO DAILY 05/28/16 Metoprolol Succinate [Toprol XL -] 100 mg PO DAILY 06/01/16 Pantoprazole Sodium [Protonix -] 40 mg PO DAILY tablet.ec 06/03/16 Docusate Sodium [Colace -] 100 mg PO BID PRN #60 cap 11/18/16 Sevelamer Carbonate [Renvela -] 800 mg PO TIDCM tab 11/18/16 Tramadol HCl [Ultram -] 50 mg PO Q8H PRN #30 tablet MDD 2 11/18/16 Atorvastatin Ca [Lipitor] 20 mg PO DAILY 11/19/16 Bimatoprost [Lumigan] 1 drop OU DAILY 11/19/16 Review of Systems - Review of Systems Able to Perform ROS?: Yes Comments:: 11/19/16 10:11 Constitutional - Pt denies Fever, Chills, weakness, HEENT: denies vision changes, sore throat Respiratory: Denies cough, sob, hemoptysis Cardiac: denies chest pain, palpitations, light headedness, leg swelling Abd/GI: denies abd pain, nausea, vomiting, blood per rectum, melena, diarrhea : denies dysuria, frequency, discharge Musculoskeletal - Back pain x 1 month. +Right heel pain. denies joint swelling skin - denies bruising, erythema, rash neurological: + Difficulty walking for which he attributes to his chronic back pain. denies headache, numbness, focal weakness, tingling, ataxia, weakness hematologic: denies anemia, easy bruising, easy bleeding <Emmanuelle Christina - Last Filed: 11/19/16 12:19> *Physical Exam - Vital Signs Last Vital Signs Temp Pulse Resp BP Pulse Ox 97.8 F 60 18 86/42 95 11/19/16 09:54 11/19/16 09:54 11/19/16 09:54 11/19/16 09:54 11/19/16 09:54 <ArriagaJazmine - Last Filed: 11/19/16 12:01> - Vital Signs Last Vital Signs Temp Pulse Resp BP Pulse Ox 97.8 F 60 18 86/42 95 11/19/16 09:54 11/19/16 09:54 11/19/16 09:54 11/19/16 09:54 11/19/16 09:54 - Physical Exam Comments: 11/19/16 10:12 GENERAL: The patient is awake, alert, and fully oriented, Nontoxic - in no acute distress. HEAD: Normocephalic, atraumatic. EYES: extraocular movements intact, sclera anicteric, conjunctiva clear. ENT: Normal voice, moist mucous membranes. NECK: Normal range of motion, supple without lymphadenopathy, JVD, or masses. LUNGS: Breath sounds equal, clear to auscultation bilaterally. No wheezes, no crackles, no rales. HEART: Regular rate and rhythm, normal S1 and S2 without murmur, rub or gallop. ABDOMEN: Soft, nontender, normoactive bowel sounds. No guarding, no rebound. No masses. EXTREMITIES: Normal range of motion, +bilaterally feet edema. No clubbing or cyanosis. No cords, erythema, or tenderness. NEUROLOGICAL: Fully Oriented, Alert, Normal Mood/Affect, Motor Strength 5/5. No facial assymetry, Normal speech SKIN: There is a small abrasion on the top of the first left toe. <Christina,Emmanuelle - Last Filed: 11/19/16 12:19> ED Treatment Course - LABORATORY CBC & Chemistry Diagram: 11/19/16 10:50 11/19/16 10:50 <CorinaJazmine - Last Filed: 11/19/16 12:01> - LABORATORY CBC & Chemistry Diagram: 11/19/16 10:50 11/19/16 10:50 - RADIOLOGY Radiograph Interpretation: 11/19/16 11:42 EXAM: RAD/FOOT-LEFT IMPRESSION: AP, lateral and oblique views reveal loss of bone density with some degenerative changes, bunion formation by the first MTP joint and minimal calcaneal spurring. There are vascular calcifications. An acute fracture or subluxation is not seen. If symptoms persist, further imaging and orthopedic consultation may be of help. <Christina,Emmanuelle - Last Filed: 11/19/16 12:19> Medical Decision Making - Medical Decision Making 11/19/16 11:00 I, Dr. Jazmine Arriaga, attest that the scribes documentation that appears above has been prepared under my direction and personally reviewed by me. I confirmed that the note above accurately reflects all work, treatment, procedures, and medical decision-making performed by me. 11/19/16 11:07 Pt presented to ED for back pain, pt was given tramadol before arrival to ed and upon arrival in ED back pain was resolved. PT was now c/o left heel pain and both feet are slightly swollen, will check uric acid, cbcm bmp and reevaluate. Case was discussed with Dr Yost of nephrology who arranged for pt to receive his dialysis at 12 30 pm today. Pt agrees with this dc plan <Jazmine Arriaga - Last Filed: 11/19/16 12:01> - Medical Decision Making 11/19/16 10:40 Call placed to Analytic Programmer, Dr. Yolande Ramirez. Informed by service that Dr. Addy Anderson is contact acid plant operator helper. Immediate response by Dr. Anderson. Case was discussed. <Christina,Emmanuelle - Last Filed: 11/19/16 12:19> *DC/Admit/Observation/Transfer - Discharge Dispostion Admit: No <Jazmine Arriaga - Last Filed: 11/19/16 12:01> - Attestations Scribe Attestion: 11/19/16 10:13 Documentation prepared by Emmanuelle Christina, acting as medical technicians for Jazmine Arriaga DO. <Emmanuelle Christina - Last Filed: 11/19/16 12:19> Diagnosis at time of Disposition: Foot pain, Back pain at L4-L5 level, DVT prophylaxis, Back pain, ESRD (end stage renal disease) - Discharge Dispostion Disposition: HOME Condition at time of disposition: Stable - Referrals Referrals: Everardo Lott MD [Primary Care Provider] -
[2016-11-19 10:04] VITALS: TEMP 97.8; BMI 19.5
[2016-11-19] MEDS ORDERED: BACITRACIN 30 GM TUBE TOPICAL OINTMENT ONE (10:31)
[2016-11-19 11:07] LABS: BASOPHIL 1.2 % (0-2.0); EOSINOPHIL 4.6 % (0-4.5); MCH 28.4 pg (25.7-33.7); MCHC 31.7 g/dl (32.0-35.9); MEAN CELL VOLUME 89.6 fl (80-96); MEAN PLT VOLUME 7.8 fl (7.5-11.1); NEUTROPHILS 71.6 % (42.8-82.8); PLATELET COUNT 411 K/MM3 (134-434); RDW 16.7 % (11.9-15.9); WHITE BLOOD COUNT 11.3 K/mm3 (4.0-10.0)
[2016-11-19 11:30] LABS: CALCIUM 8.6 mg/dL (8.5-10.1); COCKROFT - GAULT 9.33; CREATININE 4.9 mg/dL (0.7-1.3)
[2016-11-19 12:09] VITALS: BP 98/39; PULSE 59
[2016-11-19 12:11] LABS: URIC ACID 5.2 mg/dL (2.6-7.2)
== END 2016-11-19 12:23 | disposition home or self-care (01) ==
LOC: JER 09:33
DX: M54.5 Low back pain (principal); I12.0 Hypertensive chronic kidney disease with stage 5 chronic kidney disease or end stage renal disease; N18.6 End stage renal disease; N17.8 Other acute kidney failure; Z99.2 Dependence on renal dialysis; E78.00 Pure hypercholesterolemia, unspecified; I48.91 Unspecified atrial fibrillation; Z79.01 Long term (current) use of anticoagulants; I25.10 Atherosclerotic heart disease of native coronary artery without angina pectoris; Z95.5 Presence of coronary angioplasty implant and graft; K21.9 Gastro-esophageal reflux disease without esophagitis; M81.8 Other osteoporosis without current pathological fracture; R16.0 Hepatomegaly, not elsewhere classified; Z95.0 Presence of cardiac pacemaker
CPT/HCPCS: 36415; 73630-TC-LT; 80048; 84550; 85025; 99283-25

== ENCOUNTER 2016-11-30 10:04 | Inpatient (IN) | payer BC, OTHER ==
[2016-11-30 10:20] VITALS: BMI 20.2
[2016-11-30] MEDS ORDERED: morphine CARPU-JECT 2 MG/1 ML DISP.SYRIN IVPUSH ONE ×2 (11:07→11:45)
--- NOTE | 2016-11-30 11:07 | PDOC ---
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 The patient reports being recently admitted on 11/15/16 with similar symptoms. His work up during admission revealed osteoporosis of his back and questionable liver mass. , 4 cm AAA, and metastasis. Patient at that time did not want further testing and was discharged home with Tramadol. Upon ED arrival the patient continues to complain of back and abdominal pain. The patient also reports being constipated for about 4 days, passing a large bowel movement at dialysis yesterday, and did not finish his dialysis. He ranks his pain a 10/10 in pain intensity. He denies any recent fevers, chills, headache or dizziness. He denies any recent nausea, vomit, or diarrhea. He denies any recent shortness of breath. Allergies: Penicillins Past surgical history: Permanent Pacemaker. Right knee Arthroscopy. Social History: Former smoker (over 30 years ago). Denies EtOH use and recreational drug use. Primary Care Physician: Dr.Cain Lott Tier Over: Dr. James Lanier <Paulo Acevedo - Last Filed: 11/30/16 16:27> <Latosha Del Valle - Last Filed: 11/30/16 16:58> - General Chief Complaint: Pain Stated Complaint: BACK PAIN Time Seen by Provider: 11/30/16 10:39 Past History <Paulo Acevedo - Last Filed: 11/30/16 16:27> - Past Medical History Anemia: Yes Cardiac Disorders: Yes (PACEMAKER) CVA: No Diabetes: No Dialysis: Yes (RUPPERARM AV FISTULA) GI Disorders: Yes (ACID REFLUX) Disorders: No HTN: Yes Hypercholesterolemia: Yes Liver Disease: No - Surgical History Cardiac Surgery: Yes (pacemaker, STENTS) Orthopedic Surgery: Yes (R HIP FX) - Psycho/Social/Smoking Cessation Hx Anxiety: No Suicidal Ideation: No Smoking Status: No Smoking History: Former smoker Years of Tobacco Use: 30 Have you smoked in the past 12 months: No Number of Cigarettes Smoked Daily: 0 If you are a former smoker, when did you quit?: 6YRS AGO Information on smoking cessation initiated: No Hx Alcohol Use: No Drug/Substance Use Hx: No Substance Use Type: None Hx Substance Use Treatment: No <Latosha Del Valle - Last Filed: 11/30/16 16:58> - Past Medical History Allergies/Adverse Reactions: Allergies Allergy/AdvReac Type Severity Reaction Status Date / Time Penicillins Allergy Verified 11/30/16 10:17 Home Medications: Ambulatory Orders Apixaban [Eliquis] 2.5 mg PO BID 11/30/16 Aspirin [Ecotrin] 325 mg PO DAILY 11/30/16 Bimatoprost [Lumigan] 1 drop IO DAILY 11/30/16 Metoprolol Succinate [Toprol Xl -] 100 mg PO DAILY 11/30/16 Mirtazapine [Remeron Soltab -] 15 mg PO DAILY 11/30/16 Multivitamin [Poly-Vitamin] 1 each PO DAILY 11/30/16 Omeprazole 40 mg PO DAILY 11/30/16 Sevelamer Carbonate [Renvela] 800 mg PO CM 11/30/16 Sodium Polystyrene Sulfonate [Kalexate] 15 gm PO DAILY 11/30/16 Review of Systems - Review of Systems Able to Perform ROS?: Yes Comments:: 11/30/16 12:33 GENERAL/CONSTITUTIONAL: No fever or chills. No weakness. HEAD, EYES, EARS, NOSE AND THROAT: No change in vision. No ear pain or discharge. No sore throat. CARDIOVASCULAR: No chest pain or shortness of breath. RESPIRATORY: No cough, wheezing, or hemoptysis. GASTROINTESTINAL: No nausea, vomiting, diarrhea or constipation. GENITOURINARY: +abdominal pain. No dysuria, frequency, or change in urination. MUSCULOSKELETAL: +back pain. No joint or muscle swelling or pain. No neck pain. SKIN: No rash NEUROLOGIC: No headache, vertigo, loss of consciousness, or change in strength/ sensation. ENDOCRINE: No increased thirst. No abnormal weight change. HEMATOLOGIC/LYMPHATIC: No anemia, easy bleeding, or history of blood clots. ALLERGIC/IMMUNOLOGIC: No hives or skin allergy. <Paulo Acevedo - Last Filed: 11/30/16 16:27> *Physical Exam - Vital Signs Last Vital Signs Temp Pulse Resp BP Pulse Ox 97.3 F L 90/55 11/30/16 10:17 11/30/16 10:17 - Physical Exam Comments: 11/30/16 12:33 GENERAL: Awake, alert, and fully oriented, Appears uncomfortable and a little agitated but cooperable. HEAD: No signs of trauma EYES: PERRLA, EOMI, sclera anicteric, conjunctiva clear ENT: Hard of hearing. Auricles normal inspection, hearing grossly normal, nares patent, Moist mucosa NECK: Normal ROM, supple, JVD, or masses LUNGS: Breath sounds equal, clear to auscultation bilaterally. No wheezes, and no crackles HEART: Regular rate and rhythm, normal S1 and S2, no murmurs, rubs or gallops ABDOMEN: Left sided upper and lower tenderness with some guarding. Soft, normoactive bowel sounds. No rebound. No masses BACK: Mid thoracic spinal tenderness and bilateral CVA tenderness. EXTREMITIES: Normal range of motion. 2+DP/PT pulses. Right upper extremities fisual with a good thrill and no redness. Left greater than right edema and erythema. Tenderness at the right great toe. NEUROLOGICAL: Normal speech, moves all extremities equally. Speech clear. SKIN: Warm, Dry, normal turgor, no rashes or lesions noted. <Paulo Acevedo - Last Filed: 11/30/16 16:27> - Vital Signs Last Vital Signs Temp Pulse Resp BP Pulse Ox 97.3 F L 90/55 11/30/16 10:17 11/30/16 10:17 <Latosha Del Valle - Last Filed: 11/30/16 16:58> ED Treatment Course - LABORATORY CBC & Chemistry Diagram: 11/30/16 10:55 11/30/16 10:55 - ADDITIONAL ORDERS Additional order review: 11/30/16 10:55 RBC 3.87 L D MCV 90.4 MCHC 31.9 L RDW 17.8 H MPV 8.7 D Neutrophils % 75.9 Lymphocytes % 8.9 Monocytes % 13.6 H Eosinophils % 1.5 Basophils % 0.1 - Medications Given in the ED: ED Medications Discontinued Medications Generic Name Dose Route Start Last Admin Trade Name Freq PRN Reason Stop Dose Admin Morphine Sulfate 2 mg 11/30/16 11:07 11/30/16 11:13 Morphine Injection - IVPUSH 11/30/16 11:08 2 mg ONCE ONE Administration Morphine Sulfate 2 mg 11/30/16 11:45 11/30/16 11:47 Morphine Injection - IVPUSH 11/30/16 11:46 2 mg ONCE ONE Administration <Paulo Acevedo - Last Filed: 11/30/16 16:27> - LABORATORY CBC & Chemistry Diagram: 11/30/16 10:55 11/30/16 10:55 <Latosha Del Valle - Last Filed: 11/30/16 16:58> Medical Decision Making - Medical Decision Making 11/30/16 11:49 Call made to , case discussed. 11/30/16 15:[address]Tina Moore awaiting call back. 11/30/16 15:[address]Tina Moore awaiting call back. 11/30/16 16:[address]Tina Moore awaiting call back. 11/30/16 16:[address]Tina Moore, case discussed with <Paulo Acevedo - Last Filed: 11/30/16 16:27> - Medical Decision Making 11/30/16 11:01 86 yo male wtih h/o HTN CAD esrd ( /,/ mon) recently in hospital one week ago for back pain, had ct a/p was taking tramadol daily, here today with persistant back pain and abd pain. pt has had constipation x 4 days until yesterday had large BM at dialysis. was unable to finish dialysis due to soiling himself. today this am now with back and abd pain. no f/ c. no vomiting. no new weakness. no weakness. no f/c. no urinary complaints. on exam pt distress, loud and agitated. c/o back and abd pain. mildilne thoracic back pain on exam. no cva tendnerss. llq ttp. rectal exam with melenotic stool in vault. ext with left upper ext fistual good thrill no erythema.left leg wtih swelling erythema ( old ) right leg warm well perfused. DDGX: abd back pain differential colitis, ( ischemic, infectious), diverticulitis, aaa, colitis, anemia, uti, pyelo. plan ct a/p labs h/h pain control occult. lorene admit. 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 Shine (covering for dr. lee) states pt ok for ct angio. can be dialyzed tomrrow unless volume overloaded. will see pt in ed. 11/30/16 13:27 pt given protonix, for possible ugi bleed, vancomycin given for concerns sepsis (elevated lactate, elevated WBC , and temp low 96.8) d/w dr. lott, tam montoya for admission,. 11/30/16 16:53 pt wtih uti, given ceftriaxone. cultures sent. lactate 3.5 given small 250 bolus due to dialysis, incomplete dialysis yesterday. will dialyzed tomorrow. abx given cefepime and vanco to cover sepsis. possible source left leg cellulitis, bacteremia from dialysis. d/w dr. shayne Montoya, will admit. to tele. 11/30/16 16:56 <Latosha Del Valle - Last Filed: 11/30/16 16:58> *DC/Admit/Observation/Transfer - Attestations Scribe Attestion: 11/30/16 11:49 Documentation prepared by Paulo Acevedo, acting as medical device engineer for Latosha Del Valle MD. <Paulo Acevedo - Last Filed: 11/30/16 16:27> - Discharge Dispostion Admit: Yes <Latosha Del Valle - Last Filed: 11/30/16 16:58> Diagnosis at time of Disposition: Sepsis, Gastrointestinal hemorrhage, Cellulitis, ESRD (end stage renal disease ) on dialysis - Referrals Referrals: Everardo Lott MD [Primary Care Provider] -
[2016-11-30] MEDS ORDERED: morphine CARPU-JECT 2 MG/1 ML DISP.SYRIN ONE ×2 (11:14→11:49)
[2016-11-30 11:21] LABS: BASOPHIL 0.1 % (0-2.0); EOSINOPHIL 1.5 % (0-4.5); MCH 28.8 pg (25.7-33.7); MCHC 31.9 g/dl (32.0-35.9); MEAN CELL VOLUME 90.4 fl (80-96); MEAN PLT VOLUME 8.7 fl (7.5-11.1); NEUTROPHILS 75.9 % (42.8-82.8); PLATELET COUNT 410 K/MM3 (134-434); RDW 17.8 % (11.9-15.9); WHITE BLOOD COUNT 19.6 K/mm3 (4.0-10.0)
[2016-11-30 11:37] LABS: ALBUMIN 2.1 g/dl (3.4-5.0); BILIRUBIN,TOTAL 0.5 mg/dL (0.2-1.0); CALCIUM 7.9 mg/dL (8.5-10.1); COCKROFT - GAULT 8.86; CREATININE 5.2 mg/dL (0.7-1.3); TOT PROT 5.7 g/dl (6.4-8.2)
[2016-11-30 11:42] LABS: TROPONIN I 0.03 ng/ml (0.00-0.05)
[2016-11-30 11:53] LABS: INR 1.43 (0.82-1.09); PROTHROMBIN TIME (PATIENT) 15.9 SEC (9.98-11.88)
[2016-11-30] MEDS ORDERED: VANCOMYCIN 1,250 MG in DEXTROSE 5%-WATER - 250 ML IVPB ONE (13:21)
--- NOTE | 2016-11-30 13:21 | CONSULT ---
Consult - text type - Consultation Consultation Note: Renal Consult for ESRD on HD This is a 86 year old gentleman with PMhx of ESRD on HD (TTS), Afib on Eliquis, Hypertension, HLD, AAA s/p repair, recently diagnosed liver lesions (pt and family deferred work up) presented with complaints of Abd and back pain and found to have melena. Pt last had dialysis yesterday but it was cut short because pt had a large BM there. Pt is very upset and will not provide history. said that he had anterior abd pain and back pain that started last night. No chest pain or sob. No fever or chills. Pt is anuric. PMhx: as above Allergies: NKDA Family Hx: NC Social Hx: No T/A/D ROS: unable to obtain Home Meds: Home Medications Medication Instructions Recorded Apixaban [Eliquis] 2.5 mg PO BID 05/28/16 Aspirin [ASA -] 81 mg PO DAILY 05/28/16 Multivitamins [Multivit ([facility] 1 tab PO DAILY 05/28/16 Formulary)] Metoprolol Succinate [Toprol XL -] 100 mg PO DAILY 06/01/16 Pantoprazole Sodium [Protonix -] 40 mg PO DAILY tablet.ec 06/03/16 Docusate Sodium [Colace -] 100 mg PO BID PRN #60 cap 11/18/16 Sevelamer Carbonate [Renvela -] 800 mg PO TIDCM tab 11/18/16 Tramadol HCl [Ultram -] 50 mg PO Q8H PRN #30 tablet MDD 2 11/18/16 Atorvastatin Ca [Lipitor] 20 mg PO DAILY 11/19/16 Bimatoprost [Lumigan] 1 drop OU DAILY 11/19/16 Vital Signs Temperature 96.5 F L 11/30/16 12:26 Pulse Rate Respiratory Rate Blood Pressure 90/55 11/30/16 10:17 O2 Sat by Pulse Oximetry (%) Intake & Output 11/27/16 11/28/16 11/29/16 11/30/16 23:59 23:59 23:59 23:59 Weight 133 lb Gen: NAD, awake and alert HEENT: NC/AT, MM CVS: irregular, no M/R Lungs:CTA, no wheeze or rales Abd: soft, NT/ND Ext: trace LE edema CBC, BMP 05/10/17 10:55 11/30/16 10:55 Laboratory Tests 11/30/16 11/30/16 11/30/16 10:52 10:55 10:55 MCV 90.4 Lactic Acid Calcium 7.9 L Albumin 2.1 L Stool Occult Blood Positive 11/30/16 10:55 MCV Lactic Acid 3.118 H* Calcium Albumin Stool Occult Blood A/P 86 year old gentleman with PMhx of ESRD on HD (TTS), Afib on Eliquis, Hypertension, HLD, AAA s/p repair, recently diagnosed liver lesions (pt and family deferred work up) presented with complaints of Abd and back pain and found to have melena. #Abd pain with Melena r/o AAA leak or other intra-abdominal process For CTA of the Abd as per the ED pt is ok to get contrast, pt is anuric and does not have any volume overload so no immediate dialysis is needed #ESRD on HD no acute indication for dialysis today will arrange for routine dialysis in the morning Low K renal diet dose all meds for intermittent HD #Afib on Eliquis management as per primary/cardiology #Anemia Hgb higher now then previous baseline on indication for LAMAR wit HD #Leukocytosis ? etiology will check cultures with HD Thank you Addy Anderson DO
--- NOTE | 2016-11-30 13:29 | EKG ---
Test Reason : Blood Pressure : / mmHG Vent. Rate : 113 BPM Atrial Rate : 226 BPM P-R Int : 000 ms QRS Dur : 086 ms QT Int : 292 ms P-R-T Axes : 269 -02 -77 degrees QTc Int : 400 ms ATRIAL FLUTTER WITH 2:1 A-V CONDUCTION ABNORMAL ECG WHEN COMPARED WITH ECG OF 15-NOV-2016 14:47, ATRIAL FLUTTER HAS REPLACED ELECTRONIC VENTRICULAR PACEMAKER VENT. RATE HAS INCREASED BY 53 BPM Confirmed by QUYNH VASQUEZ MD ([id number]) on 11/30/2016 1:28:47 PM Referred By: Confirmed By:QUYNH VASQUEZ MD
--- NOTE | 2016-11-30 13:58 | CON.CARD ---
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 The patient reports being recently admitted on 11/15/16 with similar symptoms. His work up during admission revealed osteoporosis of his back and questionable liver mass. , 4 cm AAA, and metastasis. Patient at that time did not want further testing and was discharged home with Tramadol. Upon ED arrival the patient continues to complain of back and abdominal pain. The patient also reports being constipated for about 4 days, passing a large bowel movement at dialysis yesterday, and did not finish his dialysis. He ranks his pain a 10/10 in pain intensity. He denies any recent fevers, chills, headache or dizziness. He denies any recent nausea, vomit, or diarrhea. He denies any recent shortness of breath. Allergies: Penicillins Past surgical history: Permanent Pacemaker. Right knee Arthroscopy. Social History: Former smoker (over 30 years ago). Denies EtOH use and recreational drug use. Primary Care Physician: Dr.Cain Lott Receiving Operator: Dr. James Lanier [facility] s/p AAA stenting complicated by need for surgical removal of the catheter AAA 5.6 cm September 2011 ASHD as per HPI neg MIBI 2009 Atrial flutter/ atrial fibrillation November 2015 [facility] ESRD on HD 2011 gastric Ulcer ( stopped Plavix) 2010 HTN Hyperlipidemia PAD right ICA 50-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 s/p PPM [employer] DDD 2006, 2012 Generator change Short Episodes of A tachycardia and NSVT September 2015 Negative MIBI at [facility] 2015 - Past Medical History Cardio/Vascular: Yes: HTN, Other (Aflutter on Eliquis, AAA) Gastrointestinal: Yes: Other (h/o rectal bleed- 2010, gastric ulcer) Renal/: Yes: Renal Inusuff, Hemodialysis - Past Surgical History Past Surgical History: Yes: AAA Repair, AV Fistula/Graft (right arm), Permanent Pacemaker - Alcohol/Substance Use Hx Alcohol Use: No - Smoking History Smoking history: Former smoker Have you smoked in the past 12 months: No Aproximately how many cigarettes per day: 0 If you are a former smoker, when did you quit?: 6YRS AGO - Social History Usual Living Arrangement: With Spouse ADL: Independent 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 History of Recent Travel: No Home Medications - Allergies Allergies/Adverse Reactions: Allergies Allergy/AdvReac Type Severity Reaction Status Date / Time Penicillins Allergy Verified 11/30/16 10:17 - Home Medications Home Medications: Ambulatory Orders Apixaban [Eliquis] 2.5 mg PO BID 05/28/16 Aspirin [ASA -] 81 mg PO DAILY 05/28/16 Multivitamins [Multivit ([facility] Formulary)] 1 tab PO DAILY 05/28/16 Metoprolol Succinate [Toprol XL -] 100 mg PO DAILY 06/01/16 Pantoprazole Sodium [Protonix -] 40 mg PO DAILY tablet.ec 06/03/16 Docusate Sodium [Colace -] 100 mg PO BID PRN #60 cap 11/18/16 Sevelamer Carbonate [Renvela -] 800 mg PO TIDCM tab 11/18/16 Tramadol HCl [Ultram -] 50 mg PO Q8H PRN #30 tablet MDD 2 11/18/16 Atorvastatin Ca [Lipitor] 20 mg PO DAILY 11/19/16 Bimatoprost [Lumigan] 1 drop OU DAILY 11/19/16 Family Disease History - Family Disease History Family Disease History: Other: Father ( 61: ? ascites related complications) , Mother (: 74: CVA) Review of Systems - Review of Systems Constitutional: reports: No Symptoms Eyes: reports: No Symptoms HENT: reports: No Symptoms Neck: reports: No Symptoms Cardiovascular: reports: No Symptoms Gastrointestinal: reports: Abdominal Pain Genitourinary: reports: No Symptoms Breasts: reports: No Symptoms Reported Musculoskeletal: reports: No Symptoms Integumentary: reports: No Symptoms Neurological: reports: No Symptoms Endocrine: reports: No Symptoms Hematology/Lymphatic: reports: No Symptoms Psychiatric: reports: No Symptoms Vital Signs: Vital Signs Temperature 96.5 F L 11/30/16 12:26 Pulse Rate Respiratory Rate Blood Pressure 90/55 11/30/16 10:17 O2 Sat by Pulse Oximetry (%) Constitutional: Yes: Well Nourished, No Distress, Calm Eyes: Yes: WNL, Conjunctiva Clear, EOM Intact HENT: Yes: WNL, Atraumatic, Normocephalic Neck: Yes: WNL, Supple, Trachea Midline Respiratory: Yes: WNL, Regular, CTA Bilaterally Gastrointestinal: Yes: WNL, Normal Bowel Sounds Renal/: Yes: WNL Cardiovascular: Yes: WNL, Regular Rate and Rhythm Musculoskeletal: Yes: WNL Extremities: Yes: WNL Integumentary: Yes: WNL Neurological: Yes: WNL, Alert, Oriented ...Motor Strength: WNL Psychiatric: Yes: WNL, Alert, Oriented - Other Data Labs, Other Data: CBC, BMP 11/30/16 10:55 11/30/16 10:55 INR, PTT INR 1.43 (0.82-1.09) H 11/30/16 10:55 Troponin, BNP 11/30/16 10:55 Troponin I 0.03 D Troponin, BNP 11/30/16 10:55 Troponin I 0.03 D Imaging - Results Chest X-ray: Pending EKG: Image Reviewed (a flutter 2;1 conduction) Problem List - Problems (1) Atrial flutter Code(s): I48.92 - UNSPECIFIED ATRIAL FLUTTER Qualifiers: Atrial flutter type: unspecified Qualified Code(s): I48.92 - Unspecified atrial flutter (2) Gastric ulcer Code(s): K25.9 - GASTRIC ULCER, UNSP ACUTE OR CHRONIC, W/O HEMOR OR PERF (3) Systolic CHF Code(s): I50.20 - UNSPECIFIED SYSTOLIC (CONGESTIVE) HEART FAILURE (4) AAA (abdominal aortic aneurysm) Code(s): I71.4 - ABDOMINAL AORTIC ANEURYSM, WITHOUT RUPTURE (5) Back pain Code(s): M54.9 - DORSALGIA, UNSPECIFIED (6) Back pain at L4-L5 level Code(s): M54.5 - LOW BACK PAIN (7) Chest pain Code(s): R07.9 - CHEST PAIN, UNSPECIFIED (8) Chest pain at rest Code(s): R07.9 - CHEST PAIN, UNSPECIFIED (9) DVT prophylaxis Code(s): OEQ4507 - (10) ESRD (end stage renal disease) Code(s): N18.6 - END STAGE RENAL DISEASE (11) ESRD (end stage renal disease) on dialysis Code(s): N18.6 - END STAGE RENAL DISEASE Z99.2 - DEPENDENCE ON RENAL DIALYSIS (12) Foot pain Code(s): M79.673 - PAIN IN UNSPECIFIED FOOT (13) Hip fracture requiring operative repair Code(s): S72.009A - FRACTURE OF UNSP PART OF NECK OF UNSP FEMUR, INIT (14) Intractable back pain Code(s): M54.9 - DORSALGIA, UNSPECIFIED (15) Liver mass, right lobe Code(s): R16.0 - HEPATOMEGALY, NOT ELSEWHERE CLASSIFIED (16) Tachycardia Code(s): R00.0 - TACHYCARDIA, UNSPECIFIED (17) Weakness Code(s): R53.1 - WEAKNESS Assessment/Plan abd pain leukocytosis r/o sepsis s/p AAA stenting complicated by need for surgical removal of the catheter AAA 5.6 cm September 2011 ASHD as per HPI neg MIBI 2009 Atrial flutter/ atrial fibrillation November 2015 [facility] ESRD on HD 2011 gastric Ulcer ( stopped Plavix) 2010 HTN Hyperlipidemia PAD right ICA 50-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 s/p PPM [employer] DDD 2006, 2012 Generator change Short Episodes of A tachycardia and NSVT September 2015 Negative MIBI at [facility] 2015 admit to tele cont med rx ct abd abx f/u wbc and lactic acid
[2016-11-30] MEDS ORDERED: PANTOPRAZOLE SODIUM 100 ML IVPB ONE (14:14)
[2016-11-30] MEDS: PANTOPRAZOLE SODIUM 40 MG in SODIUM CHLORIDE 100 ML IVPB ONE ×2 (14:28→22:25)
[2016-11-30] MEDS ORDERED: PANTOPRAZOLE SODIUM 40 MG in SODIUM CHLORIDE 100 ML IVPB STA (17:02)
[2016-11-30] MEDS ORDERED: LEVOFLOXACIN 500 MG IVPB 100 ML IVPB ONE ×2 (17:02→18:03)
[2016-11-30] MEDS: PANTOPRAZOLE SODIUM 40 MG/100 ML PRE-DOCKED IVPB SCH ×3 (17:31→22:40)
[2016-11-30] MEDS: SEVELAMER CARBONATE 800 MG TAB (FP) PO SCH (19:44)
[2016-11-30] MEDS: MIRTAZAPINE 15 MG TABLET (FP) PO SCH (22:25)
[2016-11-30] MEDS: LATANOPROST 0.005% OPHTH SOLN 2.5ML BOTTLE OU SCH (22:32)
[2016-11-30] MEDS ORDERED: PT OWN MED DRAWER 7, Y5N ONE (22:51)
[2016-12-01 07:36] LABS: BASOPHIL 0.1 % (0-2.0); EOSINOPHIL 0.8 % (0-4.5); MCH 28.4 pg (25.7-33.7); MCHC 31.9 g/dl (32.0-35.9); MEAN CELL VOLUME 89.1 fl (80-96); MEAN PLT VOLUME 8.3 fl (7.5-11.1); NEUTROPHILS 81.5 % (42.8-82.8); PLATELET COUNT 323 K/MM3 (134-434); RDW 17.3 % (11.9-15.9); WHITE BLOOD COUNT 14.8 K/mm3 (4.0-10.0)
[2016-12-01 07:59] LABS: ALBUMIN 1.8 g/dl (3.4-5.0); BILIRUBIN,TOTAL 0.6 mg/dL (0.2-1.0); CALCIUM 7.7 mg/dL (8.5-10.1); COCKROFT - GAULT 7.68; PHOSPHOROUS 3.6 mg/dL (2.5-4.9); TOT PROT 4.9 g/dl (6.4-8.2)
--- NOTE | 2016-12-01 09:58 | HP ---
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 The patient reports being recently admitted on 11/15/16 with similar symptoms. His work up during admission revealed osteoporosis of his back and questionable liver mass. , 4 cm AAA, and metastasis. Patient at that time did not want further testing and was discharged home with Tramadol. Upon ED arrival the patient continues to complain of back and abdominal pain. The patient also reports being constipated for about 4 days, passing a large bowel movement at dialysis yesterday, and did not finish his dialysis. He ranks his pain a 10/10 in pain intensity. He denies any recent fevers, chills, headache or dizziness. He denies any recent nausea, vomit, or diarrhea. He denies any recent shortness of breath. Allergies: Penicillins Past surgical history: Permanent Pacemaker. Right knee Arthroscopy. Social History: Former smoker (over 30 years ago). Denies EtOH use and recreational drug use. Primary Care Physician: Dr.Cain Lott Milling/Polishing Operator: Dr. James Lanier patient seen by me in telemetry at bedside Patient complains of diffuse abdominal pain, back pain. He is uncomfortable. He does not wish for anyone to touch him. Last admission he was found to have metastatic liver disease and did not want further workup. His states that the patient had bowel movement after 4 days of constipation and giving him Colace. Found to have positive guaiac stool in the ER. History Source: Patient, Family Member Limitations to Obtaining History: Poor Historian - Past Medical History Cardiovascular: Yes: HTN, Other (Aflutter on Eliquis, AAA) Gastrointestinal: Yes: Other (h/o rectal bleed- 2010, gastric ulcer) Renal/: Yes: Renal Inusuff, Hemodialysis - Past Surgical History Past Surgical History: Yes: AAA Repair, AV Fistula/Graft (right arm), Permanent Pacemaker - Smoking History Smoking history: Former smoker Have you smoked in the past 12 months: No Aproximately how many cigarettes per day: 0 If you are a former smoker, when did you quit?: 6YRS AGO - Alcohol/Substance Use Hx Alcohol Use: No - Social History ADL: Independent 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 History of Recent Travel: No Home Medications - Allergies Allergies/Adverse Reactions: Allergies Allergy/AdvReac Type Severity Reaction Status Date / Time Penicillins Allergy Verified 11/30/16 10:17 - Home Medications Home Medications: Ambulatory Orders Apixaban [Eliquis] 2.5 mg PO BID 11/30/16 Aspirin [Ecotrin] 325 mg PO DAILY 11/30/16 Bimatoprost [Lumigan] 1 drop IO DAILY 11/30/16 Metoprolol Succinate [Toprol Xl -] 100 mg PO DAILY 11/30/16 Mirtazapine [Remeron Soltab -] 15 mg PO DAILY 11/30/16 Multivitamin [Poly-Vitamin] 1 each PO DAILY 11/30/16 Omeprazole 40 mg PO DAILY 11/30/16 Sevelamer Carbonate [Renvela] 800 mg PO CM 11/30/16 Sodium Polystyrene Sulfonate [Kalexate] 15 gm PO DAILY 11/30/16 Family Disease History - Family Disease History Family Disease History: Other: Father ( 61: ? ascites related complications) , Mother (: 74: CVA) Review of Systems - Review of Systems Constitutional: denies: Chills, Fever Cardiovascular: denies: Chest Pain Gastrointestinal: reports: Abdominal Pain, Diarrhea. denies: Nausea Integumentary: reports: Other (back pain) Physical Examination Vital Signs: Vital Signs Temperature 97.7 F 12/01/16 02:00 Pulse Rate 112 H 12/01/16 02:00 Respiratory Rate 20 12/01/16 02:00 Blood Pressure 86/52 12/01/16 02:00 O2 Sat by Pulse Oximetry (%) 98 11/30/16 21:00 Constitutional: Yes: Calm, Moderate Distress (due to pain) Cardiovascular: Yes: Pulse Irregular Respiratory: Yes: Diminished Gastrointestinal: Yes: Normal Bowel Sounds, Soft, Tenderness (diffuse) Edema: No Labs: CBC, BMP 12/01/16 07:20 12/01/16 07:20 Imaging - Results Cat Scan: Report Reviewed (metastatic disease liver) EKG: Image Reviewed (aflutter) Problem List - Problems (1) Atrial flutter Code(s): I48.92 - UNSPECIFIED ATRIAL FLUTTER Qualifiers: Atrial flutter type: unspecified Qualified Code(s): I48.92 - Unspecified atrial flutter (2) GI bleed Code(s): K92.2 - GASTROINTESTINAL HEMORRHAGE, UNSPECIFIED (3) AAA (abdominal aortic aneurysm) Code(s): I71.4 - ABDOMINAL AORTIC ANEURYSM, WITHOUT RUPTURE (4) Back pain Code(s): M54.9 - DORSALGIA, UNSPECIFIED (5) Metastases to the liver Code(s): C78.7 - SECONDARY MALIG NEOPLASM OF LIVER AND INTRAHEPATIC BILE DUCT Assessment/Plan PLAN --pain control with morphine and tramadol does not wish to do any aggressive measures as per patient's wishes GI evaluation for Melena-- but as per last admission, patient did not want to do any interventions Palliative care evaluation Spoke with funeral home associate Nancy on hold as well as ASA - Protonix - Will discontinue antibiotics as blood cultures are negative Time spent35 min
[2016-12-01] MEDS: SEVELAMER CARBONATE 800 MG TAB (FP) PO SCH ×3 (10:04→18:09)
--- NOTE | 2016-12-01 10:17 | PN ---
Progress Note, Physician Chief Complaint: Pt confused. is at bedside. 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 The patient reports being recently admitted on 11/15/16 with similar symptoms. His work up during admission revealed osteoporosis of his back and a questionable liver mass., 4 cm AAA, and metastasis. Patient at that time did not want further testing and was discharged home with Tramadol. Upon ED arrival the patient continues to complain of back and abdominal pain. The patient also reports being constipated for about 4 days, passing a large bowel movement at dialysis yesterday, and did not finish his dialysis. He ranks his pain a 10/10 in pain intensity. He denies any recent fevers, chills, headache or dizziness. He denies any recent nausea, vomit, or diarrhea. He denies any recent shortness of breath. Allergies: Penicillins Past surgical history: Permanent Pacemaker. Right knee Arthroscopy. Social History: Former smoker (over 30 years ago). Denies EtOH use and recreational drug use. Primary Care Physician: Dr.Cain Lott Well Drill Operator Rotary Drill: Dr. James Lanier - Current Medication List Current Medications: Active Medications Levofloxacin (Levaquin 250 Mg Premixed Ivpb -) 50 mls @ 50 mls/hr IVPB Q2D@ 1000 [facility] Latanoprost (Xalatan 0.005% Eye Drops -) 1 drop OU [facility] Last Admin: 11/30/16 22:32 Dose: Not Given Metoprolol Succinate (Toprol Xl -) 100 mg PO DAILY [facility] Mirtazapine (Remeron -) 15 mg PO HS [facility] Last Admin: 11/30/16 22:25 Dose: Not Given Pantoprazole Sodium (Protonix 40mg Ivpb (Pre-Docked)) 40 mg IVPB BID [facility] Last Admin: 11/30/16 22:40 Dose: 40 mg Sevelamer Carbonate (Renvela -) 800 mg PO TIDCM [facility] Last Admin: 12/01/16 10:04 Dose: 800 mg - Objective Vital Signs: Vital Signs Temperature 97.7 F 12/01/16 02:00 Pulse Rate 112 H 12/01/16 02:00 Respiratory Rate 20 12/01/16 02:00 Blood Pressure 86/52 12/01/16 02:00 O2 Sat by Pulse Oximetry (%) 98 11/30/16 21:00 Constitutional: Yes: Anxious, Mild Distress Eyes: Yes: WNL HENT: Yes: WNL Neck: Yes: WNL Cardiovascular: Yes: Pulse Irregular Respiratory: Yes: Regular Gastrointestinal: Yes: Soft ...Rectal Exam: Yes: Deferred Genitourinary: No: Anuria Breast(s): Yes: WNL Musculoskeletal: Yes: Muscle Weakness Edema: No Peripheral Pulses WNL: Yes Integumentary: Yes: WNL Neurological: Yes: Confusion Labs: CBC, BMP 12/01/16 07:20 12/01/16 07:20 INR, PTT INR 1.43 (0.82-1.09) H 11/30/16 10:55 Problem List - Problems (1) Atrial flutter Assessment/Plan: Pt on metoprolol ER (held today due to upcoming hemodialysis and earlier hypotension). Apisxaban and ASA held due to stool quaiac +. Code(s): I48.92 - UNSPECIFIED ATRIAL FLUTTER Qualifiers: Atrial flutter type: unspecified Qualified Code(s): I48.92 - Unspecified atrial flutter (2) Cellulitis Code(s): L03.90 - CELLULITIS, UNSPECIFIED (3) ESRD (end stage renal disease) on dialysis Code(s): N18.6 - END STAGE RENAL DISEASE Z99.2 - DEPENDENCE ON RENAL DIALYSIS (4) GI bleed Code(s): K92.2 - GASTROINTESTINAL HEMORRHAGE, UNSPECIFIED (5) Gastric ulcer Code(s): K25.9 - GASTRIC ULCER, UNSP ACUTE OR CHRONIC, W/O HEMOR OR PERF (6) AAA (abdominal aortic aneurysm) Code(s): I71.4 - ABDOMINAL AORTIC ANEURYSM, WITHOUT RUPTURE (7) Back pain Code(s): M54.9 - DORSALGIA, UNSPECIFIED (8) Intractable back pain Code(s): M54.9 - DORSALGIA, UNSPECIFIED (9) Liver mass, right lobe Code(s): R16.0 - HEPATOMEGALY, NOT ELSEWHERE CLASSIFIED (10) Tachycardia Assessment/Plan: AF; periods of RVR. Continue metoprolol. For hemodialysis today. F/u electrolytes, fluid status. Code(s): R00.0 - TACHYCARDIA, UNSPECIFIED (11) Weakness Code(s): R53.1 - WEAKNESS (12) Diastolic CHF Code(s): I50.30 - UNSPECIFIED DIASTOLIC (CONGESTIVE) HEART FAILURE (13) History of permanent cardiac pacemaker placement Code(s): Z95.0 - PRESENCE OF CARDIAC PACEMAKER
[2016-12-01 11:31] LABS: MAGNESIUM 1.7 mg/dL (1.8-2.4)
[2016-12-01] MEDS: morphine CARPU-JECT 2 MG/1 ML DISP.SYRIN IVPB PRN ×2 (11:56→16:10)
--- NOTE | 2016-12-01 13:37 | CON.GI ---
Consult Consult Specialty:: GI Referred by:: Dr. Milagros Montoya Reason for Consultation:: Melena - History of Present Illness Chief Complaint: Obtained from chart as patient told me on attempt at initial evaluation "No, no, no more, I don't want anything else" History of Present Illness: Current evaluation limited as he would not answer questions and refused physical exam. His was present at bedside during this. History was obtained from the chart and I ask you to review consult and follow- up notes from recent admission 11/07 including the note from 11/17/16 that reflected a conversation regarding previous CT scan findings and the patient's wishes regarding continued work-up. 86M admitted for evaluation of back pain, abdominal pain and melena. The ER note also reports that he has been constipated prior to admission. He was evaluated in 2010 for GI bleed. He ultimately underwent EGD x 2, the first revealing blood clot in the duodenal bulb, the second look EGD revealing a clean based duodenal ulcer. Colonoscopy revealed diverticulosis and blood in the colon limiting evaluation somewhat. He is now admitted for back pain. On his last visit an initial CT scan of the abdomen without contrast revealed a 3cm right hepatic lobe lesion, suspicious for a malignancy. A repeat contrast CT again revealed a liver lesion highly suspicious for a cancerous process in the liver of unclear origin. There was also an inflammatory process in the stomach and I explained to the family and Mr. Leslie that it was unclear as to whether this was a cancerous process. His believes he has lost a lot of weight recently, about 11 pounds in the last month prior to his last admission. There is no history of known liver disease, hepatitis, alcohol abuse or family history of liver disease however his father at age 61, possibly from ascites related complications. - History Source History Provided By: Medical Record - Past Medical History Cardio/Vascular: Yes: HTN, Other (Aflutter on Eliquis, AAA) Gastrointestinal: Yes: Diverticulosis, Other (h/o rectal bleed- 2010, gastric ulcer) Renal/: Yes: Renal Inusuff, Hemodialysis - Past Surgical History Past Surgical History: Yes: AAA Repair, AV Fistula/Graft (right arm), Permanent Pacemaker - Alcohol/Substance Use Hx Alcohol Use: No - Smoking History Smoking history: Former smoker Have you smoked in the past 12 months: No Aproximately how many cigarettes per day: 0 If you are a former smoker, when did you quit?: 6YRS AGO - Social History Usual Living Arrangement: With Spouse ADL: Independent 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 Place of : Other ([place]) History of Recent Travel: No Home Medications - Allergies Allergies/Adverse Reactions: Allergies Allergy/AdvReac Type Severity Reaction Status Date / Time Penicillins Allergy Verified 11/30/16 10:17 - Home Medications Home Medications: Ambulatory Orders Apixaban [Eliquis] 2.5 mg PO BID 11/30/16 Aspirin [Ecotrin] 325 mg PO DAILY 11/30/16 Bimatoprost [Lumigan] 1 drop IO DAILY 11/30/16 Metoprolol Succinate [Toprol Xl -] 100 mg PO DAILY 11/30/16 Mirtazapine [Remeron Soltab -] 15 mg PO DAILY 11/30/16 Multivitamin [Poly-Vitamin] 1 each PO DAILY 11/30/16 Omeprazole 40 mg PO DAILY 11/30/16 Sevelamer Carbonate [Renvela] 800 mg PO CM 11/30/16 Sodium Polystyrene Sulfonate [Kalexate] 15 gm PO DAILY 11/30/16 Family Disease History - Family Disease History Family Disease History: Other: Father ( 61: ? ascites related complications) , Mother (: 74: CVA) Review of Systems Unable to obtain ROS, reason: patient refused evaluatio Physical Exam-GI Vital Signs: PHYSICAL EXAM REFUSED BY PATIENT Eyes: No: Sclera Icterus Labs: CBC, BMP 12/01/16 07:20 12/01/16 07:20 INR, PTT INR 1.43 (0.82-1.09) H 11/30/16 10:55 Imaging - Results Cat Scan: Report Reviewed (multiple ring enhancing liver lesions not seen on previous CT scan suspicious for metastatic disease.) Problem List - Problems (1) GI bleed Assessment/Plan: Limited evaluation as Mr. Leslie vehemently refused physical exam or to even discuss his current complaints. Would continue PPI for now, monitor H/H, full liquid diet which seems to be at his baseline and I explained to his that goals regarding his continued care need to be clarified taking into account the wishes Mr. Leslie expressed to me during his last admission and during his current hospitalization. Mr. Leslie and his family are aware that he could have a cancerous process and that it could be contributing to his current pain complaints. I asked that she speak with her son, her and Drs. Velasquez / Jan Consider palliative care evaluation Code(s): K92.2 - GASTROINTESTINAL HEMORRHAGE, UNSPECIFIED
[2016-12-01] MEDS: traMADol HCL 50 MG TABLET PO PRN (15:30)
[2016-12-01] MEDS: PANTOPRAZOLE SODIUM 40 MG/100 ML PRE-DOCKED IVPB SCH ×2 (18:07→21:44)
[2016-12-01] MEDS: METOPROLOL SUCCINATE 100 MG TAB.SR.24H (FP) PO SCH ×2 (18:08→19:33)
[2016-12-01] MEDS ORDERED: PT OWN MED DRAWER 7, Y5N ONE (21:40)
[2016-12-01] MEDS: LATANOPROST 0.005% OPHTH SOLN 2.5ML BOTTLE OU SCH (21:42)
[2016-12-01] MEDS: MIRTAZAPINE 15 MG TABLET (FP) PO SCH (21:42)
[2016-12-02] MEDS: morphine CARPU-JECT 2 MG/1 ML DISP.SYRIN IVPB PRN ×2 (01:17→10:14)
--- NOTE | 2016-12-02 08:40 | PN ---
Progress Note (short form) - Note Progress Note: SUBJECTIVE: Patient seen and examined. Chart reviewed. Comfortable. Had a lot of pain yesterday. OBJECTIVE: Intake & Output 12/01/16 12/02/16 12/02/16 23:59 07:59 15:59 Intake Total 350 Balance 350 Intake: IVPB 200 Oral 150 Other: Voiding Method Incontinent # Unmeasured Voids Void 1 0 Bowel Movement No Active Medications Latanoprost (Xalatan 0.005% Eye Drops -) 1 drop OU [facility] Last Admin: 12/01/16 21:42 Dose: Not Given Metoprolol Succinate (Toprol Xl -) 100 mg PO DAILY [facility] Last Admin: 12/01/16 19:33 Dose: Not Given Mirtazapine (Remeron -) 15 mg PO HS [facility] Last Admin: 12/01/16 21:42 Dose: Not Given Morphine Sulfate (Morphine Injection -) 1 mg IVPB Q4H PRN PRN Reason: PAIN Last Admin: 12/02/16 01:17 Dose: 1 mg Pantoprazole Sodium (Protonix 40mg Ivpb (Pre-Docked)) 40 mg IVPB BID [facility] Last Admin: 12/01/16 21:44 Dose: Not Given Sevelamer Carbonate (Renvela -) 800 mg PO TIDCM [facility] Last Admin: 12/01/16 18:09 Dose: 800 mg Tramadol HCl (Ultram -) 50 mg PO Q4H PRN PRN Reason: PAIN Last Admin: 12/01/16 15:30 Dose: 50 mg CBC, BMP 12/01/16 07:20 12/01/16 07:20 Laboratory Results - last 24 hr 12/01/16 12/01/16 07:20 07:20 Magnesium 1.7 L Cancelled Triglycerides 127 Cancelled Cholesterol 130 D Cancelled Total LDL Cholesterol 99 Cancelled HDL Cholesterol 23 L D Cancelled Microbiology 11/30/16 12:28 Blood Culture - Preliminary Blood - Peripheral Venous NO GROWTH OBTAINED AFTER 24 HOURS, INCUBATION TO CONTINUE FOR 4 DAYS. 11/30/16 12:28 Blood Culture - Preliminary Blood - Peripheral Venous NO GROWTH OBTAINED AFTER 24 HOURS, INCUBATION TO CONTINUE FOR 4 DAYS. PHYSICAL EXAMINATION: Constitutional: Yes: Calm. Comfortable. Cardiovascular: Yes: Pulse Irregular Respiratory: Yes: Diminished Gastrointestinal: Yes: Normal Bowel Sounds, Soft, Tenderness (diffuse) Edema: No Problem List - Problems (1) Atrial flutter Code(s): I48.92 - UNSPECIFIED ATRIAL FLUTTER Qualifiers: Atrial flutter type: unspecified Qualified Code(s): I48.92 - Unspecified atrial flutter (2) GI bleed Code(s): K92.2 - GASTROINTESTINAL HEMORRHAGE, UNSPECIFIED (3) AAA (abdominal aortic aneurysm) Code(s): I71.4 - ABDOMINAL AORTIC ANEURYSM, WITHOUT RUPTURE (4) Back pain Code(s): M54.9 - DORSALGIA, UNSPECIFIED (5) Metastases to the liver Code(s): C78.7 - SECONDARY MALIG NEOPLASM OF LIVER AND INTRAHEPATIC BILE DUCT ASSESSMENT & PLAN: - Pain control. - I had a detailed talk with patient's son today - He requests Hospice evaluation. - I also agree with same. - He is also going to talk to the rest of his family. - Will consider Hospice inpatient. - Discussed with Body Designer also. - Will follow. Documentation prepared by Emmanuelle Christina, acting as a medical records auditor for Gaudencio Montoya MD.
[2016-12-02] MEDS ORDERED: LEVOFLOXACIN 250 MG IVPB 50 ML IVPB SCH (10:00)
[2016-12-02] MEDS: PANTOPRAZOLE SODIUM 40 MG/100 ML PRE-DOCKED IVPB SCH ×2 (10:14→22:19)
[2016-12-02] MEDS: SEVELAMER CARBONATE 800 MG TAB (FP) PO SCH ×3 (10:20→16:47)
[2016-12-02] MEDS: METOPROLOL SUCCINATE 100 MG TAB.SR.24H (FP) PO SCH (10:21)
--- NOTE | 2016-12-02 13:41 | PN ---
Progress Note, Physician Chief Complaint: Pt confused; alternately cursing, then asking for his mother. History of Present Illness: The patient is an 86 year old white male, with a significant past medical history of HTN, hypercholesterolemia, a-fib (s/p pacemaker; on metoprolol and apixaban), ESRD on dialysis (TRS), who presents to the emergency department with back and abdominal pain. The patient reports being recently admitted on with similar symptoms. His work up during admission revealed osteoporosis of his back and a questionable liver mass., 4 cm AAA, and metastasis. Patient at that time did not want further testing and was discharged home with Tramadol. Upon ED arrival the patient continues to complain of back and abdominal pain. The patient also reports being constipated for about 4 days, passing a large bowel movement at dialysis yesterday, and did not finish his dialysis. He ranks his pain a 10/10 in pain intensity. He denies any recent fevers, chills, headache or dizziness. He denies any recent nausea, vomit, or diarrhea. He denies any recent shortness of breath. Allergies: Penicillins Past surgical history: Permanent Pacemaker. Right knee Arthroscopy. Social History: Former smoker (over 30 years ago). Denies EtOH use and recreational drug use. Primary Care Physician: Dr.Cain Lott Manager In Home: Dr. James Lanier - Current Medication List Current Medications: Active Medications Latanoprost (Xalatan 0.005% Eye Drops -) 1 drop OU [facility] Last Admin: 12/01/16 21:42 Dose: Not Given Metoprolol Succinate (Toprol Xl -) 100 mg PO DAILY [facility] Last Admin: 12/02/16 10:21 Dose: 100 mg Mirtazapine (Remeron -) 15 mg PO HS [facility] Last Admin: 12/01/16 21:42 Dose: Not Given Morphine Sulfate (Morphine Injection -) 1 mg IVPB Q4H PRN PRN Reason: PAIN Last Admin: 12/02/16 10:14 Dose: 1 mg Pantoprazole Sodium (Protonix 40mg Ivpb (Pre-Docked)) 40 mg IVPB BID [facility] Last Admin: 12/02/16 10:14 Dose: 40 mg Sevelamer Carbonate (Renvela -) 800 mg PO TIDCM [facility] Last Admin: 12/02/16 10:20 Dose: 800 mg Tramadol HCl (Ultram -) 50 mg PO Q4H PRN PRN Reason: PAIN Last Admin: 12/01/16 15:30 Dose: 50 mg - Objective Vital Signs: Vital Signs Temperature 98.2 F 12/01/16 18:40 Pulse Rate 72 12/01/16 18:40 Respiratory Rate 20 12/01/16 18:40 Blood Pressure 136/78 12/01/16 18:40 O2 Sat by Pulse Oximetry (%) 98 11/30/16 21:00 Constitutional: Yes: Anxious, Moderate Distress Eyes: Yes: WNL HENT: Yes: WNL Neck: Yes: WNL Cardiovascular: Yes: Pulse Irregular Respiratory: Yes: Diminished Gastrointestinal: Yes: Soft ...Rectal Exam: Yes: Deferred Genitourinary: No: Anuria Extremities: Yes: Cool Edema: No Peripheral Pulses WNL: No Peripheral Pulses: Left Doralis Pedis: 1+, Right Dorsalis Pedis: 1+ Integumentary: Yes: Bruising Neurological: Yes: Confusion Psychiatric: Yes: Other Labs: CBC, BMP 12/01/16 07:20 12/01/16 07:20 INR, PTT INR 1.43 (0.82-1.09) H 11/30/16 10:55 Problem List - Problems (1) Atrial flutter Assessment/Plan: Pt on metoprolol ER. Apisxaban and ASA held due to stool quaiac +. Code(s): I48.92 - UNSPECIFIED ATRIAL FLUTTER Qualifiers: Atrial flutter type: unspecified Qualified Code(s): I48.92 - Unspecified atrial flutter (2) Cellulitis Code(s): L03.90 - CELLULITIS, UNSPECIFIED (3) ESRD (end stage renal disease) on dialysis Code(s): N18.6 - END STAGE RENAL DISEASE Z99.2 - DEPENDENCE ON RENAL DIALYSIS (4) GI bleed Code(s): K92.2 - GASTROINTESTINAL HEMORRHAGE, UNSPECIFIED (5) Gastric ulcer Code(s): K25.9 - GASTRIC ULCER, UNSP ACUTE OR CHRONIC, W/O HEMOR OR PERF (6) AAA (abdominal aortic aneurysm) Code(s): I71.4 - ABDOMINAL AORTIC ANEURYSM, WITHOUT RUPTURE (7) Back pain Code(s): M54.9 - DORSALGIA, UNSPECIFIED (8) Intractable back pain Code(s): M54.9 - DORSALGIA, UNSPECIFIED (9) Liver mass, right lobe Code(s): R16.0 - HEPATOMEGALY, NOT ELSEWHERE CLASSIFIED (10) Tachycardia Assessment/Plan: AF; periods of RVR. Continue metoprolol. For hemodialysis. F/u electrolytes, fluid status. Code(s): R00.0 - TACHYCARDIA, UNSPECIFIED (11) Weakness Code(s): R53.1 - WEAKNESS (12) Diastolic CHF Code(s): I50.30 - UNSPECIFIED DIASTOLIC (CONGESTIVE) HEART FAILURE (13) History of permanent cardiac pacemaker placement Code(s): Z95.0 - PRESENCE OF CARDIAC PACEMAKER (14) Metastases to the liver Assessment/Plan: pt's family talking over hospice care. Code(s): C78.7 - SECONDARY MALIG NEOPLASM OF LIVER AND INTRAHEPATIC BILE DUCT
[2016-12-02] MEDS: traMADol HCL 50 MG TABLET PO PRN ×2 (16:46→22:19)
[2016-12-02] MEDS ORDERED: PT OWN MED DRAWER 7, Y5N ONE ×3 (22:00→23:05)
[2016-12-02] MEDS: MIRTAZAPINE 15 MG TABLET (FP) PO SCH (22:19)
[2016-12-02] MEDS: LATANOPROST 0.005% OPHTH SOLN 2.5ML BOTTLE OU SCH (22:20)
--- NOTE | 2016-12-03 08:54 | PN ---
Progress Note, Physician Chief Complaint: Cardiology for Ruby Winkler. No acute distress - Current Medication List Current Medications: Active Medications Epoetin Alf (Epogen -) 10,000 units IVPUSH ONCE ONE Stop: 12/03/16 07:34 Latanoprost (Xalatan 0.005% Eye Drops -) 1 drop OU [facility] Last Admin: 12/02/16 22:20 Dose: 1 drop Metoprolol Succinate (Toprol Xl -) 100 mg PO DAILY [facility] Last Admin: 12/02/16 10:21 Dose: 100 mg Mirtazapine (Remeron -) 15 mg PO HS [facility] Last Admin: 12/02/16 22:19 Dose: 15 mg Morphine Sulfate (Morphine Injection -) 1 mg IVPB Q4H PRN PRN Reason: PAIN Last Admin: 12/02/16 10:14 Dose: 1 mg Pantoprazole Sodium (Protonix 40mg Ivpb (Pre-Docked)) 40 mg IVPB BID [facility] Last Admin: 12/02/16 22:19 Dose: Not Given Sevelamer Carbonate (Renvela -) 800 mg PO TIDCM [facility] Last Admin: 12/02/16 16:47 Dose: 800 mg Tramadol HCl (Ultram -) 50 mg PO Q4H PRN PRN Reason: PAIN Last Admin: 12/02/16 22:19 Dose: 50 mg - Objective Vital Signs: Vital Signs Temperature 97.9 F 12/03/16 06:00 Pulse Rate 106 H 12/03/16 06:00 Respiratory Rate 16 12/03/16 06:00 Blood Pressure 111/61 12/03/16 06:00 O2 Sat by Pulse Oximetry (%) 98 11/30/16 21:00 Constitutional: Yes: No Distress Cardiovascular: Yes: Pulse Irregular Respiratory: Yes: CTA Bilaterally Gastrointestinal: Yes: Soft Edema: No Labs: CBC, BMP 12/01/16 07:20 12/01/16 07:20 INR, PTT INR 1.43 (0.82-1.09) H 11/30/16 10:55 Microbiology 11/30/16 12:28 Blood - Peripheral Venous Blood Culture - Preliminary NO GROWTH OBTAINED AFTER 48 HOURS, INCUBATION TO CONTINUE FOR 3 DAYS. 11/30/16 12:28 Blood - Peripheral Venous Blood Culture - Preliminary NO GROWTH OBTAINED AFTER 48 HOURS, INCUBATION TO CONTINUE FOR 3 DAYS. Laboratory Tests 12/01/16 12/01/16 07:20 07:20 WBC 14.8 H RBC 3.37 L Hgb 9.6 L D Plt Count 323 D Sodium 141 Potassium 4.8 BUN 51 H D Creatinine 6.0 H Assessment/Plan Problems (1) Atrial flutter Assessment/Plan: Pt on metoprolol ER Eliquis and ASA held due to stool quaiac +. Hemodynamically stable Code(s): I48.92 - UNSPECIFIED ATRIAL FLUTTER Qualifiers: Atrial flutter type: unspecified Qualified Code(s): I48.92 - Unspecified atrial flutter Plan for hospice noted.
--- NOTE | 2016-12-03 10:26 | PN ---
Progress Note, Physician Chief Complaint: met with today pt feels well pain is controlled today he ate breakfast - Current Medication List Current Medications: Active Medications Epoetin Alf (Epogen -) 10,000 units IVPUSH ONCE ONE Stop: 12/03/16 07:34 Latanoprost (Xalatan 0.005% Eye Drops -) 1 drop OU HS [facility] Last Admin: 12/02/16 22:20 Dose: 1 drop Metoprolol Succinate (Toprol Xl -) 100 mg PO DAILY [facility] Last Admin: 12/02/16 10:21 Dose: 100 mg Mirtazapine (Remeron -) 15 mg PO HS [facility] Last Admin: 12/02/16 22:19 Dose: 15 mg Morphine Sulfate (Morphine Injection -) 1 mg IVPB Q4H PRN PRN Reason: PAIN Last Admin: 12/02/16 10:14 Dose: 1 mg Pantoprazole Sodium (Protonix 40mg Ivpb (Pre-Docked)) 40 mg IVPB BID [facility] Last Admin: 12/02/16 22:19 Dose: Not Given Sevelamer Carbonate (Renvela -) 800 mg PO TIDCM [facility] Last Admin: 12/02/16 16:47 Dose: 800 mg Tramadol HCl (Ultram -) 50 mg PO Q4H PRN PRN Reason: PAIN Last Admin: 12/02/16 22:19 Dose: 50 mg - Objective Vital Signs: Vital Signs Temperature 97.9 F 12/03/16 06:00 Pulse Rate 106 H 12/03/16 06:00 Respiratory Rate 16 12/03/16 06:00 Blood Pressure 111/61 12/03/16 06:00 O2 Sat by Pulse Oximetry (%) 98 11/30/16 21:00 Constitutional: Yes: No Distress Cardiovascular: Yes: Regular Rate and Rhythm Respiratory: Yes: Diminished Gastrointestinal: Yes: Normal Bowel Sounds, Soft. No: Distention, Tenderness Edema: No Labs: CBC, BMP 12/01/16 07:20 12/01/16 07:20 INR, PTT INR 1.43 (0.82-1.09) H 11/30/16 10:55 Problem List - Problems (1) Atrial flutter Code(s): I48.92 - UNSPECIFIED ATRIAL FLUTTER Qualifiers: Atrial flutter type: unspecified Qualified Code(s): I48.92 - Unspecified atrial flutter (2) GI bleed Code(s): K92.2 - GASTROINTESTINAL HEMORRHAGE, UNSPECIFIED (3) AAA (abdominal aortic aneurysm) Code(s): I71.4 - ABDOMINAL AORTIC ANEURYSM, WITHOUT RUPTURE (4) Back pain Code(s): M54.9 - DORSALGIA, UNSPECIFIED (5) Metastases to the liver Code(s): C78.7 - SECONDARY MALIG NEOPLASM OF LIVER AND INTRAHEPATIC BILE DUCT Assessment/Plan PLAN --pain control with morphine and tramadol -- past events noted -- Dr Montoya met with son yesterday, family decided on hospice care-- would like to have inpatient hospice. -- pain is currently controlled on MOrphine and Tramadol -- she is aware that pts on hospice will no longer have dialysis -- she requests that he have dialysis today and no more after . -- O2 as needed -- holding Eliquis -- no further lab draws -- Pt is DNR/DNI-- son will come and sign document per pt's
[2016-12-03] MEDS: SEVELAMER CARBONATE 800 MG TAB (FP) PO SCH ×3 (11:02→18:53)
--- NOTE | 2016-12-03 11:15 | PN ---
Progress Note (short form) - Note Progress Note: Renal Follow up for ESRD on HD Pt seen and examined during dialysis BP stable Pt without any acute complaints at the bedside Vital Signs Temperature 97.9 F 12/03/16 06:00 Pulse Rate 106 H 12/03/16 06:00 Respiratory Rate 16 12/03/16 06:00 Blood Pressure 111/61 12/03/16 06:00 O2 Sat by Pulse Oximetry (%) 98 11/30/16 21:00 Intake & Output 11/30/16 12/01/16 12/02/16 12/03/16 23:59 23:59 23:59 23:59 Intake Total 520 510 350 100 Balance 520 510 350 100 Weight 133 lb Gen: NAD, awake and alert HEENT: NC/AT, MM CVS: irregular, no M/R Lungs:CTA, no wheeze or rales Abd: soft, NT/ND Ext: trace LE edema CBC, BMP 12/01/16 07:20 12/01/16 07:20 Current Medications Epoetin Alf (Epogen -) 10,000 units IVPUSH ONCE ONE Stop: 12/03/16 07:34 Latanoprost (Xalatan 0.005% Eye Drops -) 1 drop OU HS [facility] Last Admin: 12/02/16 22:20 Dose: 1 drop Metoprolol Succinate (Toprol Xl -) 100 mg PO DAILY [facility] Last Admin: 12/02/16 10:21 Dose: 100 mg Mirtazapine (Remeron -) 15 mg PO HS [facility] Last Admin: 12/02/16 22:19 Dose: 15 mg Morphine Sulfate (Morphine Injection -) 1 mg IVPB Q4H PRN PRN Reason: PAIN Last Admin: 12/02/16 10:14 Dose: 1 mg Pantoprazole Sodium (Protonix 40mg Ivpb (Pre-Docked)) 40 mg IVPB BID [facility] Last Admin: 12/02/16 22:19 Dose: Not Given Sevelamer Carbonate (Renvela -) 800 mg PO TIDCM [facility] Last Admin: 12/03/16 11:02 Dose: 800 mg Tramadol HCl (Ultram -) 50 mg PO Q4H PRN PRN Reason: PAIN Last Admin: 12/02/16 22:19 Dose: 50 mg A/P 86 year old gentleman with PMhx of ESRD on HD (TTS), Afib on Eliquis, Hypertension, HLD, AAA s/p repair, recently diagnosed liver lesions (pt and family deferred work up) presented with complaints of Abd and back pain and found to have melena. #Abd pain with Melena r/o AAA leak or other intra-abdominal process CTA of the Abd did not show a AAA leak multple metastatic lesions were seen on the Liver family planing for hospice level care #ESRD on HD Hd today No further dialysis following today as per wifes wishes for Hospice placement Thank you Addy Anderson DO
[2016-12-03] MEDS: traMADol HCL 50 MG TABLET PO PRN ×2 (11:54→21:20)
[2016-12-03] MEDS: morphine CARPU-JECT 2 MG/1 ML DISP.SYRIN IVPB PRN ×2 (11:55→16:56)
[2016-12-03] MEDS ORDERED: EPOETIN ALFA 10,000 UNIT/1 ML VIAL IVPUSH ONE (12:00)
[2016-12-03 12:59] LABS: MCH 28.3 pg (25.7-33.7); MCHC 31.9 g/dl (32.0-35.9); MEAN CELL VOLUME 88.5 fl (80-96); MEAN PLT VOLUME 8.6 fl (7.5-11.1); PLATELET COUNT 310 K/MM3 (134-434); RDW 17.1 % (11.9-15.9); WHITE BLOOD COUNT 12.6 K/mm3 (4.0-10.0)
[2016-12-03 14:09] LABS: ALBUMIN 1.9 g/dl (3.4-5.0); BILIRUBIN,TOTAL 1.2 mg/dL (0.2-1.0); CALCIUM 7.7 mg/dL (8.5-10.1); COCKROFT - GAULT 8.69; CREATININE 5.3 mg/dL (0.7-1.3); MAGNESIUM 1.8 mg/dL (1.8-2.4); PHOSPHOROUS 3.2 mg/dL (2.5-4.9); TOT PROT 5.2 g/dl (6.4-8.2)
[2016-12-03] MEDS: PANTOPRAZOLE SODIUM 40 MG/100 ML PRE-DOCKED IVPB SCH ×2 (16:53→22:00)
[2016-12-03] MEDS: METOPROLOL SUCCINATE 100 MG TAB.SR.24H (FP) PO SCH (16:54)
[2016-12-03] MEDS ORDERED: PT OWN MED DRAWER 7, Y5N ONE (21:17)
[2016-12-03] MEDS: LATANOPROST 0.005% OPHTH SOLN 2.5ML BOTTLE OU SCH (21:20)
[2016-12-03] MEDS: MIRTAZAPINE 15 MG TABLET (FP) PO SCH (21:22)
[2016-12-04] MEDS: SEVELAMER CARBONATE 800 MG TAB (FP) PO SCH ×3 (08:37→16:53)
--- NOTE | 2016-12-04 08:38 | PN ---
Progress Note, Physician Chief Complaint: wants to drink, complains dry mouth - Current Medication List Current Medications: Active Medications Latanoprost (Xalatan 0.005% Eye Drops -) 1 drop OU [facility] Last Admin: 12/03/16 21:20 Dose: 1 drop Metoprolol Succinate (Toprol Xl -) 100 mg PO DAILY [facility] Last Admin: 12/03/16 16:54 Dose: Not Given Mirtazapine (Remeron -) 15 mg PO HS [facility] Last Admin: 12/03/16 21:22 Dose: 15 mg Morphine Sulfate (Morphine Injection -) 1 mg IVPB Q4H PRN PRN Reason: PAIN Last Admin: 12/03/16 16:56 Dose: 1 mg Pantoprazole Sodium (Protonix 40mg Ivpb (Pre-Docked)) 40 mg IVPB BID [facility] Last Admin: 12/03/16 22:00 Dose: Not Given Sevelamer Carbonate (Renvela -) 800 mg PO TIDCM [facility] Last Admin: 12/04/16 08:37 Dose: Not Given Tramadol HCl (Ultram -) 50 mg PO Q4H PRN PRN Reason: PAIN Last Admin: 12/03/16 21:20 Dose: 50 mg - Objective Vital Signs: Vital Signs Temperature 97.7 F 12/04/16 06:52 Pulse Rate 88 12/04/16 06:52 Respiratory Rate 20 12/04/16 06:52 Blood Pressure 129/67 12/04/16 06:52 O2 Sat by Pulse Oximetry (%) 98 11/30/16 21:00 Constitutional: Yes: No Distress HENT: Yes: Other (dry oropharynx) Cardiovascular: Yes: Regular Rate and Rhythm Respiratory: Yes: CTA Bilaterally Gastrointestinal: Yes: Soft Edema: No Labs: CBC, BMP 12/03/16 12:15 12/03/16 12:15 INR, PTT INR 1.43 (0.82-1.09) H 11/30/16 10:55 Microbiology 11/30/16 12:28 Blood - Peripheral Venous Blood Culture - Preliminary NO GROWTH OBTAINED AFTER 72 HOURS, INCUBATION TO CONTINUE FOR 2 DAYS. 11/30/16 12:28 Blood - Peripheral Venous Blood Culture - Preliminary NO GROWTH OBTAINED AFTER 72 HOURS, INCUBATION TO CONTINUE FOR 2 DAYS. Laboratory Tests 11/30/16 12/03/16 12/03/16 10:55 12:15 12:15 WBC 12.6 H Hgb 9.6 L Plt Count 310 INR 1.43 H Sodium 145 Potassium 4.2 BUN 33 H D Creatinine 5.3 H Assessment/Plan (1) Atrial flutter Assessment/Plan: Pt on metoprolol ER Eliquis and ASA held due to stool quaiac +and anemia Hemodynamically stable Code(s): I48.92 - UNSPECIFIED ATRIAL FLUTTER Qualifiers: Atrial flutter type: unspecified Qualified Code(s): I48.92 - Unspecified atrial flutter Plan for hospice noted, DNR/DNI Coverage for [facility]
--- NOTE | 2016-12-04 08:57 | PN ---
Progress Note, Physician Chief Complaint: pt feels well pain is controlled today is asking what is wrong with him - Current Medication List Current Medications: Active Medications Latanoprost (Xalatan 0.005% Eye Drops -) 1 drop OU [facility] Last Admin: 12/03/16 21:20 Dose: 1 drop Metoprolol Succinate (Toprol Xl -) 100 mg PO DAILY [facility] Last Admin: 12/03/16 16:54 Dose: Not Given Mirtazapine (Remeron -) 15 mg PO HS [facility] Last Admin: 12/03/16 21:22 Dose: 15 mg Morphine Sulfate (Morphine Injection -) 1 mg IVPB Q4H PRN PRN Reason: PAIN Last Admin: 12/03/16 16:56 Dose: 1 mg Pantoprazole Sodium (Protonix 40mg Ivpb (Pre-Docked)) 40 mg IVPB BID [facility] Last Admin: 12/03/16 22:00 Dose: Not Given Sevelamer Carbonate (Renvela -) 800 mg PO TIDCM [facility] Last Admin: 12/04/16 08:37 Dose: Not Given Tramadol HCl (Ultram -) 50 mg PO Q4H PRN PRN Reason: PAIN Last Admin: 12/03/16 21:20 Dose: 50 mg - Objective Vital Signs: Vital Signs Temperature 97.7 F 12/04/16 06:52 Pulse Rate 88 12/04/16 06:52 Respiratory Rate 20 12/04/16 06:52 Blood Pressure 129/67 12/04/16 06:52 O2 Sat by Pulse Oximetry (%) 98 11/30/16 21:00 Constitutional: Yes: No Distress Cardiovascular: Yes: Regular Rate and Rhythm Respiratory: Yes: Diminished Gastrointestinal: Yes: Normal Bowel Sounds, Soft. No: Distention, Tenderness Edema: No Labs: CBC, BMP 12/03/16 12:15 12/03/16 12:15 INR, PTT INR 1.43 (0.82-1.09) H 11/30/16 10:55 Problem List - Problems (1) Atrial flutter Code(s): I48.92 - UNSPECIFIED ATRIAL FLUTTER Qualifiers: Atrial flutter type: unspecified Qualified Code(s): I48.92 - Unspecified atrial flutter (2) GI bleed Code(s): K92.2 - GASTROINTESTINAL HEMORRHAGE, UNSPECIFIED (3) AAA (abdominal aortic aneurysm) Code(s): I71.4 - ABDOMINAL AORTIC ANEURYSM, WITHOUT RUPTURE (4) Back pain Code(s): M54.9 - DORSALGIA, UNSPECIFIED (5) Metastases to the liver Code(s): C78.7 - SECONDARY MALIG NEOPLASM OF LIVER AND INTRAHEPATIC BILE DUCT Assessment/Plan PLAN --pain control with morphine and tramadol -- past events noted -- hospice care -- no further lab draws -- Pt is DNR/DNI-- son will come and sign document per pt's
[2016-12-04] MEDS: METOPROLOL SUCCINATE 100 MG TAB.SR.24H (FP) PO SCH (10:55)
[2016-12-04] MEDS: PANTOPRAZOLE SODIUM 40 MG/100 ML PRE-DOCKED IVPB SCH ×2 (10:56→22:41)
[2016-12-04] MEDS: LATANOPROST 0.005% OPHTH SOLN 2.5ML BOTTLE OU SCH (22:40)
[2016-12-04] MEDS: MIRTAZAPINE 15 MG TABLET (FP) PO SCH (22:41)
[2016-12-05] MEDS ORDERED: ALBUTEROL SO4 0.083% IH SOL 2.5 MG/3 ML VIAL.NEB. NEB ONE (06:13)
--- NOTE | 2016-12-05 08:33 | PN ---
Progress Note (short form) - Note Progress Note: Subjective Patient seen and examined. Chart reviewed. Comfortable. Forgetful. Denies pain. No distress. Objective Last Vital Signs Temp Pulse Resp BP Pulse Ox 97.7 F 63 18 97/46 96 12/05/16 06:32 12/05/16 06:32 12/05/16 06:32 12/05/16 06:32 12/04/16 21:00 CBC, BMP 12/03/16 12:15 12/03/16 12:15 Physical Exam Constitutional: Yes: No Distress/ Comfortable. Cardiovascular: Yes: Regular Rate and Rhythm Respiratory: Yes: Diminished at bases Gastrointestinal: Yes: Normal Bowel Sounds, Soft. No: Distention, Tenderness Edema: No Assessment and Plan --comfortable -- hospice care -- hospice team to evaluate today -- no further lab draws -- Pt is DNR/DNI -- Discussed with case management social worker and nursing staff also. --Pain control --will follow Documentation prepared by Oliva De La Rosa, acting as a medical safety director for Gaudencio Montoya MD.
[2016-12-05] MEDS: PANTOPRAZOLE SODIUM 40 MG/100 ML PRE-DOCKED IVPB SCH (11:04)
[2016-12-05] MEDS: METOPROLOL SUCCINATE 100 MG TAB.SR.24H (FP) PO SCH (11:04)
[2016-12-05] MEDS: SEVELAMER CARBONATE 800 MG TAB (FP) PO SCH ×2 (11:04→11:10)
--- NOTE | 2016-12-05 11:42 | PN ---
Progress Note (short form) - Note Progress Note: Renal Follow up for ESRD on HD Pt seen and examined at the bedside pt complains of pain in the heels no sob or chest pain poor appetite as per pt on inpatient hopice last dialysis was Monday Vital Signs Temperature 97.7 F 12/05/16 11:12 Pulse Rate 61 12/05/16 11:12 Respiratory Rate 18 12/05/16 11:12 Blood Pressure 102/50 12/05/16 11:12 O2 Sat by Pulse Oximetry (%) 96 12/04/16 21:00 Intake & Output 12/02/16 12/03/16 12/04/16 12/05/16 23:59 23:59 23:59 23:59 Intake Total 350 418 460 90 Output Total 0 Balance 350 418 460 90 Gen: NAD, awake and alert HEENT: NC/AT, MM CVS: irregular, no M/R Lungs:CTA, no wheeze or rales Abd: soft, NT/ND Ext: trace LE edema CBC, BMP 12/03/16 12:15 12/03/16 12:15 Current Medications Latanoprost (Xalatan 0.005% Eye Drops -) 1 drop OU HS [facility] Last Admin: 12/04/16 22:40 Dose: 1 drop Metoprolol Succinate (Toprol Xl -) 100 mg PO DAILY [facility] Last Admin: 12/05/16 11:04 Dose: 100 mg Mirtazapine (Remeron -) 15 mg PO HS [facility] Last Admin: 12/04/16 22:41 Dose: 15 mg Pantoprazole Sodium (Protonix 40mg Ivpb (Pre-Docked)) 40 mg IVPB BID [facility] Last Admin: 12/05/16 11:04 Dose: 40 mg Sevelamer Carbonate (Renvela -) 800 mg PO TIDCM [facility] Last Admin: 12/05/16 11:10 Dose: Not Given A/P 86 year old gentleman with PMhx of ESRD on HD (TTS), Afib on Eliquis, Hypertension, HLD, AAA s/p repair, recently diagnosed liver lesions (pt and family deferred work up) presented with complaints of Abd and back pain and found to have melena. #Intra-Abdominal Malignancy with multiple metastatic lesions family would like to defer any aggressive management Pt on inpatient hospice supportive care #ESRD on HD Last dialysis was Saturday No further dialysis as per family No further lab draws D/C Jean-Pierre Will sign off case at this time Thank you for allowing us to take part in the care of this patient Thank you Addy Anderson DO
[2016-12-05] MEDS ORDERED: traMADol HCL 50 MG TABLET PO PRN (12:41)
--- NOTE | 2016-12-05 13:06 | PN ---
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 The patient reports being recently admitted on 11/15/16 with similar symptoms. His work up during admission revealed osteoporosis of his back and questionable liver mass. , 4 cm AAA, and metastasis. Patient at that time did not want further testing and was discharged home with Tramadol. Upon ED arrival the patient continues to complain of back and abdominal pain. The patient also reports being constipated for about 4 days, passing a large bowel movement at dialysis yesterday, and did not finish his dialysis. He ranks his pain a 10/10 in pain intensity. He denies any recent fevers, chills, headache or dizziness. He denies any recent nausea, vomit, or diarrhea. He denies any recent shortness of breath. Allergies: Penicillins Past surgical history: Permanent Pacemaker. Right knee Arthroscopy. Social History: Former smoker (over 30 years ago). Denies EtOH use and recreational drug use. Primary Care Physician: Dr.Cain Lott Thermal Molder: Dr. James Lanier [facility] s/p AAA stenting complicated by need for surgical removal of the catheter AAA 5.6 cm September 2011 ASHD as per HPI neg MIBI 2009 Atrial flutter/ atrial fibrillation November 2015 [facility] ESRD on HD 2011 gastric Ulcer ( stopped Plavix) 2010 HTN Hyperlipidemia PAD right ICA 50-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 s/p PPM [employer] DDD 2006, 2012 Generator change Short Episodes of A tachycardia and NSVT September 2015 Negative MIBI at [facility] 2015 - Current Medication List Current Medications: Active Medications Latanoprost (Xalatan 0.005% Eye Drops -) 1 drop OU HS [facility] Last Admin: 12/04/16 22:40 Dose: 1 drop Metoprolol Succinate (Toprol Xl -) 100 mg PO DAILY [facility] Last Admin: 12/05/16 11:04 Dose: 100 mg Mirtazapine (Remeron -) 15 mg PO HS [facility] Last Admin: 12/04/16 22:41 Dose: 15 mg Pantoprazole Sodium (Protonix -) 40 mg PO DAILY [facility] Tramadol HCl (Ultram -) 50 mg PO Q8H PRN PRN Reason: PAIN - Objective Vital Signs: Vital Signs Temperature 97.7 F 12/05/16 11:12 Pulse Rate 61 12/05/16 11:12 Respiratory Rate 18 12/05/16 11:12 Blood Pressure 102/50 12/05/16 11:12 O2 Sat by Pulse Oximetry (%) 96 12/04/16 21:00 Eyes: Yes: WNL, Conjunctiva Clear, EOM Intact HENT: Yes: WNL, Atraumatic, Normocephalic Neck: Yes: WNL, Supple, Trachea Midline Cardiovascular: Yes: Pulse Irregular, S1, S2 Respiratory: Yes: WNL, Regular, CTA Bilaterally Gastrointestinal: Yes: WNL, Normal Bowel Sounds Genitourinary: Yes: WNL Musculoskeletal: Yes: WNL Extremities: Yes: WNL Edema: No Integumentary: Yes: WNL Neurological: Yes: WNL, Alert, Oriented ...Motor Strength: WNL Psychiatric: Yes: WNL Labs: CBC, BMP 12/03/16 12:15 12/03/16 12:15 INR, PTT INR 1.43 (0.82-1.09) H 11/30/16 10:55 Problem List - Problems (1) Atrial flutter Code(s): I48.92 - UNSPECIFIED ATRIAL FLUTTER Qualifiers: Atrial flutter type: unspecified Qualified Code(s): I48.92 - Unspecified atrial flutter (2) Gastric ulcer Code(s): K25.9 - GASTRIC ULCER, UNSP ACUTE OR CHRONIC, W/O HEMOR OR PERF (3) Systolic CHF Code(s): I50.20 - UNSPECIFIED SYSTOLIC (CONGESTIVE) HEART FAILURE (4) AAA (abdominal aortic aneurysm) Code(s): I71.4 - ABDOMINAL AORTIC ANEURYSM, WITHOUT RUPTURE (5) Back pain Code(s): M54.9 - DORSALGIA, UNSPECIFIED (6) Back pain at L4-L5 level Code(s): M54.5 - LOW BACK PAIN (7) Chest pain Code(s): R07.9 - CHEST PAIN, UNSPECIFIED (8) Chest pain at rest Code(s): R07.9 - CHEST PAIN, UNSPECIFIED (9) DVT prophylaxis Code(s): [id number] - (10) ESRD (end stage renal disease) Code(s): N18.6 - END STAGE RENAL DISEASE (11) ESRD (end stage renal disease) on dialysis Code(s): N18.6 - END STAGE RENAL DISEASE Z99.2 - DEPENDENCE ON RENAL DIALYSIS (12) Foot pain Code(s): M79.673 - PAIN IN UNSPECIFIED FOOT (13) Hip fracture requiring operative repair Code(s): S72.009A - FRACTURE OF UNSP PART OF NECK OF UNSP FEMUR, INIT (14) Intractable back pain Code(s): M54.9 - DORSALGIA, UNSPECIFIED (15) Liver mass, right lobe Code(s): R16.0 - HEPATOMEGALY, NOT ELSEWHERE CLASSIFIED (16) Tachycardia Code(s): R00.0 - TACHYCARDIA, UNSPECIFIED (17) Weakness Code(s): R53.1 - WEAKNESS Assessment/Plan - Problems (1) Atrial flutter Assessment/Plan: Pt on metoprolol ER. Apisxaban and ASA held due to stool quaiac +. Code(s): I48.92 - UNSPECIFIED ATRIAL FLUTTER Qualifiers: Atrial flutter type: unspecified Qualified Code(s): I48.92 - Unspecified atrial flutter (2) Cellulitis Code(s): L03.90 - CELLULITIS, UNSPECIFIED (3) ESRD (end stage renal disease) on dialysis Code(s): N18.6 - END STAGE RENAL DISEASE Z99.2 - DEPENDENCE ON RENAL DIALYSIS (4) GI bleed Code(s): K92.2 - GASTROINTESTINAL HEMORRHAGE, UNSPECIFIED (5) Gastric ulcer Code(s): K25.9 - GASTRIC ULCER, UNSP ACUTE OR CHRONIC, W/O HEMOR OR PERF (6) AAA (abdominal aortic aneurysm) Code(s): I71.4 - ABDOMINAL AORTIC ANEURYSM, WITHOUT RUPTURE (7) Back pain Code(s): M54.9 - DORSALGIA, UNSPECIFIED (8) Intractable back pain Code(s): M54.9 - DORSALGIA, UNSPECIFIED (9) Liver mass, right lobe Code(s): R16.0 - HEPATOMEGALY, NOT ELSEWHERE CLASSIFIED (10) Tachycardia Assessment/Plan: AF; periods of RVR. Continue metoprolol. For hemodialysis. F/u electrolytes, fluid status. Code(s): R00.0 - TACHYCARDIA, UNSPECIFIED (11) Weakness Code(s): R53.1 - WEAKNESS (12) Diastolic CHF Code(s): I50.30 - UNSPECIFIED DIASTOLIC (CONGESTIVE) HEART FAILURE (13) History of permanent cardiac pacemaker placement Code(s): Z95.0 - PRESENCE OF CARDIAC PACEMAKER (14) Metastases to the liver Assessment/Plan: pt's family talking over hospice care. Code(s): C78.7 - SECONDARY MALIG NEOPLASM OF LIVER AND INTRAHEPATIC BILE DUCT
[2016-12-05] MEDS ORDERED: PT OWN MED DRAWER 7, Y5N ONE (21:27)
[2016-12-05] MEDS: LATANOPROST 0.005% OPHTH SOLN 2.5ML BOTTLE OU SCH (21:28)
[2016-12-05] MEDS: MIRTAZAPINE 15 MG TABLET (FP) PO SCH (21:28)
[2016-12-06] MEDS: PANTOPRAZOLE 40 MG TABLET (FP) PO SCH (11:22)
[2016-12-06] MEDS: METOPROLOL SUCCINATE 100 MG TAB.SR.24H (FP) PO SCH (11:22)
--- NOTE | 2016-12-06 12:03 | PN ---
Progress Note, Physician Chief Complaint: no distress - Current Medication List Current Medications: Active Medications Latanoprost (Xalatan 0.005% Eye Drops -) 1 drop OU HS [facility] Last Admin: 12/05/16 21:28 Dose: 1 drop Metoprolol Succinate (Toprol Xl -) 100 mg PO DAILY [facility] Last Admin: 12/06/16 11:22 Dose: 100 mg Mirtazapine (Remeron -) 15 mg PO HS [facility] Last Admin: 12/05/16 21:28 Dose: 15 mg Pantoprazole Sodium (Protonix -) 40 mg PO DAILY [facility] Last Admin: 12/06/16 11:22 Dose: 40 mg Tramadol HCl (Ultram -) 50 mg PO Q8H PRN PRN Reason: PAIN Last Admin: 12/05/16 18:04 Dose: 50 mg - Objective Vital Signs: Vital Signs Temperature 97.4 F L 12/06/16 10:00 Pulse Rate 60 12/06/16 10:00 Respiratory Rate 18 12/06/16 10:00 Blood Pressure 118/62 12/06/16 10:00 O2 Sat by Pulse Oximetry (%) 96 12/05/16 21:00 Constitutional: Yes: No Distress Cardiovascular: Yes: Pulse Irregular Respiratory: Yes: Diminished Gastrointestinal: Yes: Normal Bowel Sounds, Soft. No: Distention, Tenderness Edema: No Labs: CBC, BMP 12/03/16 12:15 12/03/16 12:15 INR, PTT INR 1.43 (0.82-1.09) H 11/30/16 10:55 Problem List - Problems (1) Atrial flutter Code(s): I48.92 - UNSPECIFIED ATRIAL FLUTTER Qualifiers: Atrial flutter type: unspecified Qualified Code(s): I48.92 - Unspecified atrial flutter (2) GI bleed Code(s): K92.2 - GASTROINTESTINAL HEMORRHAGE, UNSPECIFIED (3) AAA (abdominal aortic aneurysm) Code(s): I71.4 - ABDOMINAL AORTIC ANEURYSM, WITHOUT RUPTURE (4) Back pain Code(s): M54.9 - DORSALGIA, UNSPECIFIED (5) Metastases to the liver Code(s): C78.7 - SECONDARY MALIG NEOPLASM OF LIVER AND INTRAHEPATIC BILE DUCT Assessment/Plan PLAN --pain control with morphine and tramadol -- past events noted -- hospice care -- no further lab draws -- Pt is DNR/DNI
--- NOTE | 2016-12-06 14:40 | PN ---
Progress Note, Physician Chief Complaint: Pt awake; pleasant; confused. His is at bedside. History of Present Illness: The patient is an 86 year old white male, with a significant past medical history of HTN, hypercholesterolemia, a-fib (s/p pacemaker; on metoprolol and apixaban), ESRD on dialysis (TRS), who presents to the emergency department with back and abdominal pain. The patient reports being recently admitted on with similar symptoms. His work up during admission revealed osteoporosis of his back and a questionable liver mass., 4 cm AAA, and metastasis. Patient at that time did not want further testing and was discharged home with Tramadol. Upon ED arrival the patient continues to complain of back and abdominal pain. The patient also reports being constipated for about 4 days, passing a large bowel movement at dialysis yesterday, and did not finish his dialysis. He ranks his pain a 10/10 in pain intensity. He denies any recent fevers, chills, headache or dizziness. He denies any recent nausea, vomit, or diarrhea. He denies any recent shortness of breath. Allergies: Penicillins Past surgical history: Permanent Pacemaker. Right knee Arthroscopy. Social History: Former smoker (over 30 years ago). Denies EtOH use and recreational drug use. Primary Care Physician: Dr.Cain Lott Paperhanger Pipe: Dr. James Lanier - Current Medication List Current Medications: Active Medications Latanoprost (Xalatan 0.005% Eye Drops -) 1 drop OU HS [facility] Last Admin: 12/05/16 21:28 Dose: 1 drop Metoprolol Succinate (Toprol Xl -) 100 mg PO DAILY [facility] Last Admin: 12/06/16 11:22 Dose: 100 mg Mirtazapine (Remeron -) 15 mg PO HS [facility] Last Admin: 12/05/16 21:28 Dose: 15 mg Pantoprazole Sodium (Protonix -) 40 mg PO DAILY [facility] Last Admin: 12/06/16 11:22 Dose: 40 mg Tramadol HCl (Ultram -) 50 mg PO Q8H PRN PRN Reason: PAIN Last Admin: 12/05/16 18:04 Dose: 50 mg - Objective Vital Signs: Vital Signs Temperature 97.4 F L 12/06/16 10:00 Pulse Rate 60 12/06/16 10:00 Respiratory Rate 18 12/06/16 10:00 Blood Pressure 118/62 12/06/16 10:00 O2 Sat by Pulse Oximetry (%) 96 12/05/16 21:00 Constitutional: Yes: Thin Eyes: Yes: WNL HENT: Yes: WNL Neck: Yes: WNL Cardiovascular: Yes: Regular Rate and Rhythm Respiratory: Yes: Regular Gastrointestinal: Yes: Soft Genitourinary: Yes: Oliguria Musculoskeletal: Yes: Muscle Weakness Extremities: Yes: Cool Edema: No Peripheral Pulses WNL: No Integumentary: Yes: WNL Psychiatric: Yes: Other Labs: CBC, BMP 12/03/16 12:15 12/03/16 12:15 INR, PTT INR 1.43 (0.82-1.09) H 11/30/16 10:55 Problem List - Problems (1) Atrial flutter Assessment/Plan: Pt on metoprolol ER. Apisxaban and ASA held due to stool quaiac +. Code(s): I48.92 - UNSPECIFIED ATRIAL FLUTTER Qualifiers: Atrial flutter type: unspecified Qualified Code(s): I48.92 - Unspecified atrial flutter (2) Cellulitis Code(s): L03.90 - CELLULITIS, UNSPECIFIED (3) ESRD (end stage renal disease) on dialysis Assessment/Plan: on hospice care; no longer receiving hemodialysis. Code(s): N18.6 - END STAGE RENAL DISEASE Z99.2 - DEPENDENCE ON RENAL DIALYSIS (4) GI bleed Code(s): K92.2 - GASTROINTESTINAL HEMORRHAGE, UNSPECIFIED (5) Gastric ulcer Code(s): K25.9 - GASTRIC ULCER, UNSP ACUTE OR CHRONIC, W/O HEMOR OR PERF (6) AAA (abdominal aortic aneurysm) Code(s): I71.4 - ABDOMINAL AORTIC ANEURYSM, WITHOUT RUPTURE (7) Back pain Code(s): M54.9 - DORSALGIA, UNSPECIFIED (8) Intractable back pain Code(s): M54.9 - DORSALGIA, UNSPECIFIED (9) Liver mass, right lobe Code(s): R16.0 - HEPATOMEGALY, NOT ELSEWHERE CLASSIFIED (10) Tachycardia Assessment/Plan: AF; periods of RVR. Continue metoprolol. Now on palliative care. Code(s): R00.0 - TACHYCARDIA, UNSPECIFIED (11) Weakness Code(s): R53.1 - WEAKNESS (12) Diastolic CHF Code(s): I50.30 - UNSPECIFIED DIASTOLIC (CONGESTIVE) HEART FAILURE (13) History of permanent cardiac pacemaker placement Code(s): Z95.0 - PRESENCE OF CARDIAC PACEMAKER (14) Metastases to the liver Assessment/Plan: Now DNR/DNI; hospice care. Code(s): C78.7 - SECONDARY MALIG NEOPLASM OF LIVER AND INTRAHEPATIC BILE DUCT
[2016-12-06] MEDS ORDERED: PT OWN MED DRAWER 7, Y5N ONE (21:52)
[2016-12-06] MEDS: MIRTAZAPINE 15 MG TABLET (FP) PO SCH (22:11)
[2016-12-06] MEDS: LATANOPROST 0.005% OPHTH SOLN 2.5ML BOTTLE OU SCH (22:11)
[2016-12-07] MEDS: METOPROLOL SUCCINATE 100 MG TAB.SR.24H (FP) PO SCH (10:14)
[2016-12-07] MEDS: PANTOPRAZOLE 40 MG TABLET (FP) PO SCH (10:14)
--- NOTE | 2016-12-07 10:28 | PN ---
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 The patient reports being recently admitted on 11/15/16 with similar symptoms. His work up during admission revealed osteoporosis of his back and questionable liver mass. , 4 cm AAA, and metastasis. Patient at that time did not want further testing and was discharged home with Tramadol. Upon ED arrival the patient continues to complain of back and abdominal pain. The patient also reports being constipated for about 4 days, passing a large bowel movement at dialysis yesterday, and did not finish his dialysis. He ranks his pain a 10/10 in pain intensity. He denies any recent fevers, chills, headache or dizziness. He denies any recent nausea, vomit, or diarrhea. He denies any recent shortness of breath. Allergies: Penicillins Past surgical history: Permanent Pacemaker. Right knee Arthroscopy. Social History: Former smoker (over 30 years ago). Denies EtOH use and recreational drug use. Primary Care Physician: Dr.Cain Lott Police Chief Deputy: Dr. James Lanier [facility] s/p AAA stenting complicated by need for surgical removal of the catheter AAA 5.6 cm September 2011 ASHD as per HPI neg MIBI 2009 Atrial flutter/ atrial fibrillation November 2015 [facility] ESRD on HD 2011 gastric Ulcer ( stopped Plavix) 2010 HTN Hyperlipidemia PAD right ICA 50-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 s/p PPM [employer] DDD 2006, 2012 Generator change Short Episodes of A tachycardia and NSVT September 2015 Negative MIBI at [facility] 2015 - Current Medication List Current Medications: Active Medications Latanoprost (Xalatan 0.005% Eye Drops -) 1 drop OU HS [facility] Last Admin: 12/06/16 22:11 Dose: 1 drop Metoprolol Succinate (Toprol Xl -) 100 mg PO DAILY [facility] Last Admin: 12/07/16 10:14 Dose: Not Given Mirtazapine (Remeron -) 15 mg PO HS [facility] Last Admin: 12/06/16 22:11 Dose: 15 mg Pantoprazole Sodium (Protonix -) 40 mg PO DAILY [facility] Last Admin: 12/07/16 10:14 Dose: Not Given Tramadol HCl (Ultram -) 50 mg PO Q8H PRN PRN Reason: PAIN Last Admin: 12/05/16 18:04 Dose: 50 mg - Objective Vital Signs: Vital Signs Temperature 97.6 F 12/07/16 10:14 Pulse Rate 61 12/07/16 10:14 Respiratory Rate 20 12/07/16 10:14 Blood Pressure 111/80 12/07/16 10:14 O2 Sat by Pulse Oximetry (%) 92 L 12/06/16 21:00 Eyes: Yes: WNL, Conjunctiva Clear, EOM Intact HENT: Yes: WNL, Atraumatic, Normocephalic Neck: Yes: WNL, Supple, Trachea Midline Cardiovascular: Yes: Pulse Irregular Respiratory: Yes: WNL, Regular, CTA Bilaterally Gastrointestinal: Yes: WNL, Normal Bowel Sounds Genitourinary: Yes: WNL Musculoskeletal: Yes: WNL Extremities: Yes: WNL Edema: No Integumentary: Yes: WNL Neurological: Yes: WNL, Alert, Oriented ...Motor Strength: WNL Psychiatric: Yes: WNL Labs: CBC, BMP 12/03/16 12:15 12/03/16 12:15 INR, PTT INR 1.43 (0.82-1.09) H 11/30/16 10:55 Problem List - Problems (1) Atrial flutter Code(s): I48.92 - UNSPECIFIED ATRIAL FLUTTER Qualifiers: Atrial flutter type: unspecified Qualified Code(s): I48.92 - Unspecified atrial flutter (2) Gastric ulcer Code(s): K25.9 - GASTRIC ULCER, UNSP ACUTE OR CHRONIC, W/O HEMOR OR PERF (3) Systolic CHF Code(s): I50.20 - UNSPECIFIED SYSTOLIC (CONGESTIVE) HEART FAILURE (4) AAA (abdominal aortic aneurysm) Code(s): I71.4 - ABDOMINAL AORTIC ANEURYSM, WITHOUT RUPTURE (5) Back pain Code(s): M54.9 - DORSALGIA, UNSPECIFIED (6) Back pain at L4-L5 level Code(s): M54.5 - LOW BACK PAIN (7) Chest pain Code(s): R07.9 - CHEST PAIN, UNSPECIFIED (8) Chest pain at rest Code(s): R07.9 - CHEST PAIN, UNSPECIFIED (9) DVT prophylaxis Code(s): [id number] - (10) ESRD (end stage renal disease) Code(s): N18.6 - END STAGE RENAL DISEASE (11) ESRD (end stage renal disease) on dialysis Code(s): N18.6 - END STAGE RENAL DISEASE Z99.2 - DEPENDENCE ON RENAL DIALYSIS (12) Foot pain Code(s): M79.673 - PAIN IN UNSPECIFIED FOOT (13) Hip fracture requiring operative repair Code(s): S72.009A - FRACTURE OF UNSP PART OF NECK OF UNSP FEMUR, INIT (14) Intractable back pain Code(s): M54.9 - DORSALGIA, UNSPECIFIED (15) Liver mass, right lobe Code(s): R16.0 - HEPATOMEGALY, NOT ELSEWHERE CLASSIFIED (16) Tachycardia Code(s): R00.0 - TACHYCARDIA, UNSPECIFIED (17) Weakness Code(s): R53.1 - WEAKNESS Assessment/Plan - Problems (1) Atrial flutter Assessment/Plan: Pt on metoprolol ER. Apisxaban and ASA held due to stool quaiac +. Code(s): I48.92 - UNSPECIFIED ATRIAL FLUTTER Qualifiers: Atrial flutter type: unspecified Qualified Code(s): I48.92 - Unspecified atrial flutter (2) Cellulitis Code(s): L03.90 - CELLULITIS, UNSPECIFIED (3) ESRD (end stage renal disease) on dialysis Assessment/Plan: on hospice care; no longer receiving hemodialysis. Code(s): N18.6 - END STAGE RENAL DISEASE Z99.2 - DEPENDENCE ON RENAL DIALYSIS (4) GI bleed Code(s): K92.2 - GASTROINTESTINAL HEMORRHAGE, UNSPECIFIED (5) Gastric ulcer Code(s): K25.9 - GASTRIC ULCER, UNSP ACUTE OR CHRONIC, W/O HEMOR OR PERF (6) AAA (abdominal aortic aneurysm) Code(s): I71.4 - ABDOMINAL AORTIC ANEURYSM, WITHOUT RUPTURE (7) Back pain Code(s): M54.9 - DORSALGIA, UNSPECIFIED (8) Intractable back pain Code(s): M54.9 - DORSALGIA, UNSPECIFIED (9) Liver mass, right lobe Code(s): R16.0 - HEPATOMEGALY, NOT ELSEWHERE CLASSIFIED (10) Tachycardia Assessment/Plan: AF; periods of RVR. Continue metoprolol. Now on palliative care. Code(s): R00.0 - TACHYCARDIA, UNSPECIFIED (11) Weakness Code(s): R53.1 - WEAKNESS (12) Diastolic CHF Code(s): I50.30 - UNSPECIFIED DIASTOLIC (CONGESTIVE) HEART FAILURE (13) History of permanent cardiac pacemaker placement Code(s): Z95.0 - PRESENCE OF CARDIAC PACEMAKER (14) Metastases to the liver Assessment/Plan: Now DNR/DNI; hospice care. Code(s): C78.7 - SECONDARY MALIG NEOPLASM OF LIVER AND INTRAHEPATIC BILE DUCT
[2016-12-07] MEDS ORDERED: FENTANYL PATCH WASTE TD PRN (11:57)
[2016-12-07] MEDS ORDERED: fentaNYL 12mcg/hr PATCH.TD72 TD SCH (12:00)
--- NOTE | 2016-12-07 17:08 | PN ---
Progress Note, Physician Chief Complaint: pt has pain in feet and back at bedside pt refusing meds - Current Medication List Current Medications: Active Medications Fentanyl (Duragesic 12mcg Patch -) 1 patch TD Q72H [facility] Stop: 12/14/16 11:57 Last Admin: 12/07/16 13:47 Dose: 1 patch Latanoprost (Xalatan 0.005% Eye Drops -) 1 drop OU HS [facility] Last Admin: 12/06/16 22:11 Dose: 1 drop Metoprolol Succinate (Toprol Xl -) 100 mg PO DAILY [facility] Last Admin: 12/07/16 10:14 Dose: Not Given Mirtazapine (Remeron -) 15 mg PO HS [facility] Last Admin: 12/06/16 22:11 Dose: 15 mg Miscellaneous (Duragesic Patch Waste) 1 each TD PRN PRN PRN Reason: PAIN Pantoprazole Sodium (Protonix -) 40 mg PO DAILY [facility] Last Admin: 12/07/16 10:14 Dose: Not Given Tramadol HCl (Ultram -) 50 mg PO Q8H PRN PRN Reason: PAIN Last Admin: 12/05/16 18:04 Dose: 50 mg - Objective Vital Signs: Vital Signs Temperature 98.6 F 12/07/16 14:25 Pulse Rate 61 12/07/16 14:25 Respiratory Rate 20 12/07/16 14:25 Blood Pressure 91/37 12/07/16 14:25 O2 Sat by Pulse Oximetry (%) 92 L 12/07/16 10:15 Constitutional: Yes: Mild Distress Cardiovascular: Yes: Pulse Irregular Respiratory: Yes: Diminished Gastrointestinal: Yes: Normal Bowel Sounds, Soft. No: Tenderness Edema: No Labs: CBC, BMP 12/03/16 12:15 12/03/16 12:15 INR, PTT INR 1.43 (0.82-1.09) H 11/30/16 10:55 Problem List - Problems (1) Atrial flutter Code(s): I48.92 - UNSPECIFIED ATRIAL FLUTTER Qualifiers: Atrial flutter type: unspecified Qualified Code(s): I48.92 - Unspecified atrial flutter (2) GI bleed Code(s): K92.2 - GASTROINTESTINAL HEMORRHAGE, UNSPECIFIED (3) AAA (abdominal aortic aneurysm) Code(s): I71.4 - ABDOMINAL AORTIC ANEURYSM, WITHOUT RUPTURE (4) Back pain Code(s): M54.9 - DORSALGIA, UNSPECIFIED (5) Metastases to the liver Code(s): C78.7 - SECONDARY MALIG NEOPLASM OF LIVER AND INTRAHEPATIC BILE DUCT Assessment/Plan PLAN --pain control with Fentanyl patch -- hospice care -- no further lab draws -- Pt is DNR/DNI -- no further dialysis
[2016-12-07] MEDS ORDERED: PT OWN MED DRAWER 7, Y5N ONE (21:31)
[2016-12-07] MEDS: MIRTAZAPINE 15 MG TABLET (FP) PO SCH (21:34)
[2016-12-07] MEDS: LATANOPROST 0.005% OPHTH SOLN 2.5ML BOTTLE OU SCH (21:34)
[2016-12-08] MEDS: PANTOPRAZOLE 40 MG TABLET (FP) PO SCH (11:21)
[2016-12-08] MEDS: METOPROLOL SUCCINATE 100 MG TAB.SR.24H (FP) PO SCH (11:21)
--- NOTE | 2016-12-08 11:46 | PN ---
Progress Note, Physician Chief Complaint: pt has pain in feet and back pt refusing meds - Current Medication List Current Medications: Active Medications Fentanyl (Duragesic 12mcg Patch -) 1 patch TD Q72H [facility] Stop: 12/14/16 11:57 Last Admin: 12/07/16 13:47 Dose: 1 patch Latanoprost (Xalatan 0.005% Eye Drops -) 1 drop OU HS [facility] Last Admin: 12/07/16 21:34 Dose: Not Given Metoprolol Succinate (Toprol Xl -) 100 mg PO DAILY [facility] Last Admin: 12/08/16 11:21 Dose: Not Given Mirtazapine (Remeron -) 15 mg PO HS [facility] Last Admin: 12/07/16 21:34 Dose: Not Given Miscellaneous (Duragesic Patch Waste) 1 each TD PRN PRN PRN Reason: PAIN Pantoprazole Sodium (Protonix -) 40 mg PO DAILY [facility] Last Admin: 12/08/16 11:21 Dose: 40 mg Tramadol HCl (Ultram -) 50 mg PO Q8H PRN PRN Reason: PAIN Last Admin: 12/05/16 18:04 Dose: 50 mg - Objective Vital Signs: Vital Signs Temperature 97.5 F L 12/08/16 05:53 Pulse Rate 68 12/08/16 05:53 Respiratory Rate 18 12/08/16 05:53 Blood Pressure 99/57 12/08/16 05:53 O2 Sat by Pulse Oximetry (%) 92 L 12/07/16 10:15 Constitutional: Yes: No Distress Cardiovascular: Yes: Pulse Irregular Respiratory: Yes: Diminished Gastrointestinal: Yes: Normal Bowel Sounds, Soft. No: Distention, Tenderness Edema: No Labs: CBC, BMP 12/03/16 12:15 12/03/16 12:15 INR, PTT INR 1.43 (0.82-1.09) H 11/30/16 10:55 Problem List - Problems (1) Atrial flutter Code(s): I48.92 - UNSPECIFIED ATRIAL FLUTTER Qualifiers: Atrial flutter type: unspecified Qualified Code(s): I48.92 - Unspecified atrial flutter (2) GI bleed Code(s): K92.2 - GASTROINTESTINAL HEMORRHAGE, UNSPECIFIED (3) AAA (abdominal aortic aneurysm) Code(s): I71.4 - ABDOMINAL AORTIC ANEURYSM, WITHOUT RUPTURE (4) Back pain Code(s): M54.9 - DORSALGIA, UNSPECIFIED (5) Metastases to the liver Code(s): C78.7 - SECONDARY MALIG NEOPLASM OF LIVER AND INTRAHEPATIC BILE DUCT Assessment/Plan PLAN --pain control with Fentanyl patch -- hospice care -- awaiting insurance approval -- no further lab draws -- Pt is DNR/DNI -- no further dialysis
[2016-12-08] MEDS ORDERED: PT OWN MED DRAWER 7, Y5N ONE (21:36)
[2016-12-08] MEDS: LATANOPROST 0.005% OPHTH SOLN 2.5ML BOTTLE OU SCH (21:38)
[2016-12-08] MEDS: MIRTAZAPINE 15 MG TABLET (FP) PO SCH (21:38)
[2016-12-08 23:58] VITALS: BP 144/70; PULSE 71; TEMP 97.5
--- NOTE | 2016-12-09 07:58 | PN ---
Progress Note (short form) - Note Progress Note: SUBJECTIVE: Patient seen and examined. Chart reviewed. Comfortable. OBJECTIVE: Intake & Output 12/08/16 12/09/16 12/09/16 23:59 07:59 15:59 Intake Total 200 100 Balance 200 100 Intake: Oral 200 100 Other: Voiding Method Incontinent Active Medications Fentanyl (Duragesic 12mcg Patch -) 1 patch TD Q72H [facility] Stop: 12/14/16 11:57 Last Admin: 12/07/16 13:47 Dose: 1 patch Latanoprost (Xalatan 0.005% Eye Drops -) 1 drop OU HS [facility] Last Admin: 12/08/16 21:38 Dose: 1 drop Metoprolol Succinate (Toprol Xl -) 100 mg PO DAILY [facility] Last Admin: 12/08/16 11:21 Dose: Not Given Mirtazapine (Remeron -) 15 mg PO HS [facility] Last Admin: 12/08/16 21:38 Dose: 15 mg Miscellaneous (Duragesic Patch Waste) 1 each TD PRN PRN PRN Reason: PAIN Pantoprazole Sodium (Protonix -) 40 mg PO DAILY [facility] Last Admin: 12/08/16 11:21 Dose: 40 mg CBC, BMP 12/03/16 12:15 12/03/16 12:15 PHYSICAL EXAMINATION: Constitutional: Yes: No Distress Cardiovascular: Yes: Pulse Irregular Respiratory: Yes: Diminished at bases Gastrointestinal: Yes: Normal Bowel Sounds, Soft. No: Distention, Tenderness Edema: No Problem List - Problems (1) Atrial flutter Code(s): I48.92 - UNSPECIFIED ATRIAL FLUTTER Qualifiers: Atrial flutter type: unspecified Qualified Code(s): I48.92 - Unspecified atrial flutter (2) GI bleed Code(s): K92.2 - GASTROINTESTINAL HEMORRHAGE, UNSPECIFIED (3) AAA (abdominal aortic aneurysm) Code(s): I71.4 - ABDOMINAL AORTIC ANEURYSM, WITHOUT RUPTURE (4) Back pain Code(s): M54.9 - DORSALGIA, UNSPECIFIED (5) Metastases to the liver Code(s): C78.7 - SECONDARY MALIG NEOPLASM OF LIVER AND INTRAHEPATIC BILE DUCT ASSESSMENT & PLAN: - Pain control with Fentanyl patch - Hospice care -- awaiting insurance approval - No further lab draws - Patient is DNR/DNI - No further dialysis Documentation prepared by Emmanuelle Christina, acting as a associate medical director for Gaudencio Montoya MD.
[2016-12-09] MEDS: PANTOPRAZOLE 40 MG TABLET (FP) PO SCH (09:51)
[2016-12-09] MEDS: METOPROLOL SUCCINATE 100 MG TAB.SR.24H (FP) PO SCH (09:51)
--- NOTE | 2016-12-09 10:58 | PN ---
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 The patient reports being recently admitted on 11/15/16 with similar symptoms. His work up during admission revealed osteoporosis of his back and questionable liver mass. , 4 cm AAA, and metastasis. Patient at that time did not want further testing and was discharged home with Tramadol. Upon ED arrival the patient continues to complain of back and abdominal pain. The patient also reports being constipated for about 4 days, passing a large bowel movement at dialysis yesterday, and did not finish his dialysis. He ranks his pain a 10/10 in pain intensity. He denies any recent fevers, chills, headache or dizziness. He denies any recent nausea, vomit, or diarrhea. He denies any recent shortness of breath. Allergies: Penicillins Past surgical history: Permanent Pacemaker. Right knee Arthroscopy. Social History: Former smoker (over 30 years ago). Denies EtOH use and recreational drug use. Primary Care Physician: Dr.Cain Lott Employment Services Director: Dr. James Lanier [facility] s/p AAA stenting complicated by need for surgical removal of the catheter AAA 5.6 cm September 2011 ASHD as per HPI neg MIBI 2009 Atrial flutter/ atrial fibrillation November 2015 [facility] ESRD on HD 2011 gastric Ulcer ( stopped Plavix) 2010 HTN Hyperlipidemia PAD right ICA 50-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 s/p PPM [employer] DDD 2006, 2012 Generator change Short Episodes of A tachycardia and NSVT September 2015 Negative MIBI at [facility] 2015 - Current Medication List Current Medications: Active Medications Fentanyl (Duragesic 12mcg Patch -) 1 patch TD Q72H [facility] Stop: 12/14/16 11:57 Last Admin: 12/07/16 13:47 Dose: 1 patch Latanoprost (Xalatan 0.005% Eye Drops -) 1 drop OU [facility] Last Admin: 12/08/16 21:38 Dose: 1 drop Metoprolol Succinate (Toprol Xl -) 100 mg PO DAILY [facility] Last Admin: 12/09/16 09:51 Dose: 100 mg Mirtazapine (Remeron -) 15 mg PO HS [facility] Last Admin: 12/08/16 21:38 Dose: 15 mg Miscellaneous (Duragesic Patch Waste) 1 each TD PRN PRN PRN Reason: PAIN Pantoprazole Sodium (Protonix -) 40 mg PO DAILY [facility] Last Admin: 12/09/16 09:51 Dose: 40 mg - Objective Vital Signs: Vital Signs Temperature 97.5 F L 12/08/16 22:00 Pulse Rate 71 12/08/16 22:00 Respiratory Rate 18 12/09/16 10:00 Blood Pressure 144/70 12/08/16 22:00 O2 Sat by Pulse Oximetry (%) 92 L 12/07/16 10:15 Eyes: Yes: WNL, Conjunctiva Clear, EOM Intact HENT: Yes: WNL, Atraumatic, Normocephalic Neck: Yes: WNL, Supple, Trachea Midline Cardiovascular: Yes: WNL, Regular Rate and Rhythm Respiratory: Yes: WNL, Regular, CTA Bilaterally Gastrointestinal: Yes: WNL, Normal Bowel Sounds Genitourinary: Yes: WNL Musculoskeletal: Yes: WNL Extremities: Yes: WNL Edema: No Integumentary: Yes: WNL Neurological: Yes: Lethargy ...Motor Strength: WNL Psychiatric: Yes: WNL Labs: CBC, BMP 12/03/16 12:15 12/03/16 12:15 INR, PTT INR 1.43 (0.82-1.09) H 11/30/16 10:55 Problem List - Problems (1) Atrial flutter Code(s): I48.92 - UNSPECIFIED ATRIAL FLUTTER Qualifiers: Atrial flutter type: unspecified Qualified Code(s): I48.92 - Unspecified atrial flutter (2) Gastric ulcer Code(s): K25.9 - GASTRIC ULCER, UNSP ACUTE OR CHRONIC, W/O HEMOR OR PERF (3) Systolic CHF Code(s): I50.20 - UNSPECIFIED SYSTOLIC (CONGESTIVE) HEART FAILURE (4) AAA (abdominal aortic aneurysm) Code(s): I71.4 - ABDOMINAL AORTIC ANEURYSM, WITHOUT RUPTURE (5) Back pain Code(s): M54.9 - DORSALGIA, UNSPECIFIED (6) Back pain at L4-L5 level Code(s): M54.5 - LOW BACK PAIN (7) Chest pain Code(s): R07.9 - CHEST PAIN, UNSPECIFIED (8) Chest pain at rest Code(s): R07.9 - CHEST PAIN, UNSPECIFIED (9) DVT prophylaxis Code(s): [id number] - (10) ESRD (end stage renal disease) Code(s): N18.6 - END STAGE RENAL DISEASE (11) ESRD (end stage renal disease) on dialysis Code(s): N18.6 - END STAGE RENAL DISEASE Z99.2 - DEPENDENCE ON RENAL DIALYSIS (12) Foot pain Code(s): M79.673 - PAIN IN UNSPECIFIED FOOT (13) Hip fracture requiring operative repair Code(s): S72.009A - FRACTURE OF UNSP PART OF NECK OF UNSP FEMUR, INIT (14) Intractable back pain Code(s): M54.9 - DORSALGIA, UNSPECIFIED (15) Liver mass, right lobe Code(s): R16.0 - HEPATOMEGALY, NOT ELSEWHERE CLASSIFIED (16) Tachycardia Code(s): R00.0 - TACHYCARDIA, UNSPECIFIED (17) Weakness Code(s): R53.1 - WEAKNESS Assessment/Plan - Problems (1) Atrial flutter Assessment/Plan: Pt on metoprolol ER. Apisxaban and ASA held due to stool quaiac +. Code(s): I48.92 - UNSPECIFIED ATRIAL FLUTTER Qualifiers: Atrial flutter type: unspecified Qualified Code(s): I48.92 - Unspecified atrial flutter (2) Cellulitis Code(s): L03.90 - CELLULITIS, UNSPECIFIED (3) ESRD (end stage renal disease) on dialysis Assessment/Plan: on hospice care; no longer receiving hemodialysis. Code(s): N18.6 - END STAGE RENAL DISEASE Z99.2 - DEPENDENCE ON RENAL DIALYSIS (4) GI bleed Code(s): K92.2 - GASTROINTESTINAL HEMORRHAGE, UNSPECIFIED (5) Gastric ulcer Code(s): K25.9 - GASTRIC ULCER, UNSP ACUTE OR CHRONIC, W/O HEMOR OR PERF (6) AAA (abdominal aortic aneurysm) Code(s): I71.4 - ABDOMINAL AORTIC ANEURYSM, WITHOUT RUPTURE (7) Back pain Code(s): M54.9 - DORSALGIA, UNSPECIFIED (8) Intractable back pain Code(s): M54.9 - DORSALGIA, UNSPECIFIED (9) Liver mass, right lobe Code(s): R16.0 - HEPATOMEGALY, NOT ELSEWHERE CLASSIFIED (10) Tachycardia Assessment/Plan: AF; periods of RVR. Continue metoprolol. Now on palliative care. Code(s): R00.0 - TACHYCARDIA, UNSPECIFIED (11) Weakness Code(s): R53.1 - WEAKNESS (12) Diastolic CHF Code(s): I50.30 - UNSPECIFIED DIASTOLIC (CONGESTIVE) HEART FAILURE (13) History of permanent cardiac pacemaker placement Code(s): Z95.0 - PRESENCE OF CARDIAC PACEMAKER (14) Metastases to the liver Assessment/Plan: Now DNR/DNI; hospice care. Code(s): C78.7 - SECONDARY MALIG NEOPLASM OF LIVER AND INTRAHEPATIC BILE DUCT
--- NOTE | 2016-12-09 11:22 | DS ---
Physical Examination Vital Signs: Vital Signs Temperature 97.5 F L 12/08/16 22:00 Pulse Rate 71 12/08/16 22:00 Respiratory Rate 18 12/09/16 10:00 Blood Pressure 144/70 12/08/16 22:00 O2 Sat by Pulse Oximetry (%) 92 L 12/07/16 10:15 Labs: CBC, BMP 12/03/16 12:15 12/03/16 12:15 <Gaudencio Montoya - Last Filed: 12/09/16 11:22> Vital Signs: Vital Signs Temperature 97.5 F L 12/08/16 22:00 Pulse Rate 71 12/08/16 22:00 Respiratory Rate 18 12/09/16 10:00 Blood Pressure 144/70 12/08/16 22:00 O2 Sat by Pulse Oximetry (%) 92 L 12/07/16 10:15 Findings/Remarks: See today's progress note. Labs: CBC, BMP 12/03/16 12:15 12/03/16 12:15 <Emmanuelle Christina - Last Filed: 12/09/16 11:26> Discharge Summary Reason For Visit: CELLULITIS; SEPSIS; GASTROINTESTINAL HEMORRHAGE Current Active Problems Atrial flutter (Acute) Cellulitis (Acute) Diastolic CHF (Acute) ESRD (end stage renal disease) on dialysis (Acute) GI bleed (Acute) Gastric ulcer (Acute) History of permanent cardiac pacemaker placement (Acute) Metastases to the liver (Acute) Sepsis (Acute) Systolic CHF (Acute) - Home Medications Comprehensive Discharge Medication List: Ambulatory Orders Bimatoprost [Lumigan] 1 drop IO DAILY 11/30/16 Omeprazole 40 mg PO DAILY 11/30/16 Fentanyl Patch Waste [Duragesic Patch Waste] 1 each TD PRN PRN #0 each 12/09/16 Latanoprost 0.005% Eye Drops [Xalatan 0.005% Eye Drops -] 1 drop OU HS #30 5ml 12/09/16 Tramadol HCl [Ultram -] 50 mg PO Q8H PRN #30 tablet MDD 3 12/09/16 <Gaudencio Montoya - Last Filed: 12/09/16 11:22> Current Active Problems Atrial flutter (Acute) Cellulitis (Acute) Diastolic CHF (Acute) ESRD (end stage renal disease) on dialysis (Acute) GI bleed (Acute) Gastric ulcer (Acute) History of permanent cardiac pacemaker placement (Acute) Metastases to the liver (Acute) Sepsis (Acute) Systolic CHF (Acute) Hospital Course: The patient is an 86-year-old male with a significant past medical history of ESRD on HD (TTS), Afib on Eliquis, Hypertension, HLD, AAA s/p repair, recently diagnosed liver lesions (pt and family deferred work up) presented with complaints of Abd and back pain and found to have melena. During this hospitalization, patient was placed on Hospice care as no further treatment or workup per patient/family. Patient to be discharged today to [facility]. I also discussed again with patient's son Will send only on pain medications for comfort care. Discussed with nursing staff as well as P[employer]. Time spent 30 minutes in examining, documenting and discussing with family. Documentation prepared by Emmanuelle Christina, acting as a medical referral coordinator for Gaudencio Montoya MD. - Home Medications Comprehensive Discharge Medication List: Ambulatory Orders Bimatoprost [Lumigan] 1 drop IO DAILY 11/30/16 Omeprazole 40 mg PO DAILY 11/30/16 Fentanyl Patch Waste [Duragesic Patch Waste] 1 each TD PRN PRN #0 each 12/09/16 Latanoprost 0.005% Eye Drops [Xalatan 0.005% Eye Drops -] 1 drop OU HS #30 5ml 12/09/16 Tramadol HCl [Ultram -] 50 mg PO Q8H PRN #30 tablet MDD 3 12/09/16 <Emmanuelle Christina - Last Filed: 12/09/16 11:26> - Instructions Referrals: Everardo Lott MD [Primary Care Provider] -
== END 2016-12-09 11:52 | disposition hospice, inpatient (51) | DRG 435 ==
LOC: JER 10:04 → JERBED 16:59 → J4S 18:25
PROVIDERS: ADMIT Internal Medicine; ATTEND Internal Medicine
DX: C78.7 Secondary malignant neoplasm of liver and intrahepatic bile duct (principal); N18.6 End stage renal disease; K92.2 Gastrointestinal hemorrhage, unspecified; I13.2 Hypertensive heart and chronic kidney disease with heart failure and with stage 5 chronic kidney disease, or end stage renal disease; I50.30 Unspecified diastolic (congestive) heart failure; I48.92 Unspecified atrial flutter; I71.4 Abdominal aortic aneurysm, without rupture; M54.9 Dorsalgia, unspecified; D64.9 Anemia, unspecified; C80.1 Malignant (primary) neoplasm, unspecified; E78.5 Hyperlipidemia, unspecified; Z95.0 Presence of cardiac pacemaker
CPT/HCPCS: 36415; 74174-TC; 80053; 80061; 82272; 82550; 83605; 83721; 83735; 84100; 84484; 85025; 85027; 85610; 86850; 86900; 86901; 87040; 93005; 93010; 93306-TC; 99284-25; J0885